=== PATIENT | female | born 1960 | race Caucasian/White ===

== ENCOUNTER → 2020-09-21 07:14 | Outpatient (CLI) | payer BC, SELFPAY ==
[2020-09-21 23:58] LABS: SARS-CoV-2 RNA PCR Negative
== END ==
PROVIDERS: PCP Family Medicine Adolescent Medicine; Visit Provider Family Medicine Adolescent Medicine
DX: R11.0 Nausea (principal); M79.10 Myalgia, unspecified site; Z20.822 Contact with and (suspected) exposure to COVID-19
CPT/HCPCS: C9803; U0003; U0005

== ENCOUNTER → 2020-12-09 06:36 | Outpatient (CLI) | payer BC, SELFPAY ==
[2020-12-09 19:49] LABS: SARS-CoV-2 RNA PCR Negative
== END ==
PROVIDERS: PCP Family Medicine Adolescent Medicine; Visit Provider Family Medicine Adolescent Medicine
DX: M79.10 Myalgia, unspecified site (principal); J06.9 Acute upper respiratory infection, unspecified; Z20.822 Contact with and (suspected) exposure to COVID-19
CPT/HCPCS: C9803; U0003; U0005

== ENCOUNTER 2021-09-03 10:35 | Inpatient (IN) | payer BC, SELFPAY ==
[2021-09-03] VITALS (11 sets, daily range): BP systolic 145–208; BP diastolic 63–103; PULSE 63–81; RESP 14–26; TEMP 35.9–36.7; O2SAT 97–99; BMI 43.4
--- NOTE | ~2021-09-03 | XR_ITS ---
EXAMINATION: XR chest 2V DATE: 09/03/2021 11:13 INDICATION: Dyspnea on exertion. TECHNIQUE: Frontal and lateral views of the chest were obtained. COMPARISON: Chest 2 views 12/20/2010 FINDINGS: There are mild airspace opacities in the lower lung zones. There are small pleural effusion s. No pneumothorax. The heart size is normal. Surgical clips in the right upper quadrant are likely f rom cholecystectomy. IMPRESSION: 1. Mild airspace opacities in the lower lung zones, consistent with atelectasis versus pneumonia. 2. Small pleural effusions. Reviewed, dictated and finalized at location A. TRICAL TROUPER
--- NOTE | ~2021-09-03 | CT_ITS ---
EXAMINATION: CTA chest PE protocol DATE: 09/03/2021 11:58 INDICATION: Shortness of breath. TECHNIQUE: Computed tomography angiography (CTA) of the chest was performed with 100 mL Omnipaque-350 intravenous contrast timed to evaluate the pulmonary arteries. Coronal maximum intensity projection 3D-reconstructions were created by the technologist. Automated exposure control and iterative reconst ruction technique were employed. The dose-length product was 1018.89 mGy-cm. COMPARISON: Chest 2 views 09/03/2021 FINDINGS: There are small pleural effusions, right worse than left. A calcified left lung nodule and calcified left hilar and mediastinal lymph nodes are consistent with old granulomatous disease. There is mild atelectasis bilaterally. There are mild patchy groundglass opacities in left upper lobe. The re is smooth septal thickening in the lungs. Cardiomegaly is noted. There are coronary artery calcifi cations. No pericardial effusion. There is no pulmonary embolus. Calcifications in the liver and sple en are consistent with old granulomatous disease. There are changes of cholecystectomy. There is a sm all volume of perihepatic ascites. There is mild thoracic spondylosis. IMPRESSION: 1. No pulmonary embolus. 2. Diffuse lung disease, likely mild pulmonary edema. Mild groundglass opacities in left upper lobe m ay be pulmonary edema or pneumonia. 3. Small pleural effusions. 4. Small volume of ascites. Reviewed, dictated and finalized at location A. ERCIAL HORTICULTURE INSTRUCTOR IMPRESSION: 1. No pulmonary embolus. 2. Diffuse lung disease, likely mild pulmonary edema. Mild groundglass opacitie s in left upper lobe may be pulmonary edema or pneumonia. 3. Small pleural effusions. 4. Small volume of ascites.
--- NOTE | ~2021-09-03 | US_ITS ---
EXAMINATION: US renal BI EXAM DATE: 09/04/2021 09:11 INDICATION: Elevated Creatinine. TECHNIQUE: Multiple grayscale and Doppler images of the kidneys were obtained (by a technologist who performed the scan) and subsequently reviewed. There is no prior study for comparison. FINDINGS: Some limitations from body habitus, poor acoustic windows. Right kidney: There is normal contour and echogenicity. It measures 10.3 x 5.4 centimeters. There a re no focal renal lesions identified. There is no hydronephrosis. Left kidney: There is normal contour and echogenicity. It measures 10.5 x 5.4 centimeters. There ar e no focal renal lesions identified. There is no hydronephrosis. Bladder unremarkable. IMPRESSION: 1. No hydronephrosis. Reviewed, dictated and finalized at location A. ED GOODS CONTROLS OPERATOR IMPRESSION: 1. No hydronephrosis.
--- NOTE | 2021-09-03 10:38 | ECG_ITS ---
Measurements Intervals [place] Rate: 66 P: 53 [place]: 162 QRS: 44 QRSD: 79 T: 26 QT: 401 QTc: 421 Interpretive Statements SINUS RHYTHM LOW-VOLTAGE QRS IN PRECORDIAL LEADS NONSPECIFIC T-WAVE ABNORMALITY BORDERLINE ECG NO PREVIOUS ECG AVAILABLE FOR COMPARISON Electronically Signed On 09-03-2021 11:12:40 PLAY THERAPIST by Gerber Anaya M.D.
[2021-09-03 11:07] LABS: Basophils Absolute Auto 0.1 K/mm3 (0.0-0.1); Basophils Percent Auto 1.1 % (0.2-1.2); Eosinophils Absolute Auto 0.5 K/mm3 (0-0.3); Eosinophils Percent Auto 4.9 % (0-4.4); Hematocrit 35.3 % (37.0-47.0); Hemoglobin 10.9 g/dL (12.0-15.0); Immature Granulocyte Absolute 0.08 K/mm3 (0.00-0.031); Immature Granulocyte Percent A 0.8 % (0-0.5); Lymphocytes Absolute Auto 1.56 K/mm3 (0.9-3.2); Lymphocytes Percent Auto 14.6 % (18.3-44.2); Mean Corpuscular HGB Conc 30.9 g/dl (32-36); Mean Corpuscular Hemoglobin 29.3 pg (26-34); Mean Corpuscular Volume 94.9 fl (80-100); Mean Platelet Volume 9.3 fl (7.4-10.4); Monocytes Absolute Auto 0.5 K/mm3 (0.1-0.6); Monocytes Percent Auto 4.9 % (2.6-8.5); Neutrophils Absolute Auto 7.9 K/mm3 (1.3-6.7); Neutrophils Percent Auto 73.7 % (45.5-73.1); Platelet Count Result 290 k/mm3 (150-375); Red Blood Count 3.72 M/mm3 (4.2-5.4); Red Cell Distribution Width 13.8 % (11.5-14.5); White Blood Count 10.7 K/mm3 (4.5-10.0)
--- NOTE | 2021-09-03 11:16 | ED.SOB ---
HPI - SOB/Dyspnea General Chief Complaint: Shortness of Breath/Dyspnea Stated Complaint: SOB X WEEKS Time Seen by Provider: 09/03/21 10:57 Source: patient Mode of arrival: ambulatory Limitations: no limitations History of Present Illness HPI Narrative: This is a 61 year old female that presents to the ER for exertional shortness of breath. Worsening over the last couple of weeks. Associated with a mild chest discomfort and swelling in her legs. Denies fever or cough. Related Data Home Medications Medication Instructions Recorded Confirmed glimepiride 2 mg tablet 1 mg PO QAM tablet 08/08/21 08/08/21 indapamide 2.5 mg tablet 2.5 mg PO DAILY 08/08/21 08/08/21 losartan 100 mg tablet 100 mg PO DAILY 08/08/21 08/08/21 metoprolol succinate 100 mg 100 mg PO DAILY 08/08/21 08/08/21 tablet,extended release 24 hr Saccharomyces boulardii 250 mg 250 mg PO DAILY cap 08/09/21 capsule pantoprazole 40 mg tablet,delayed 40 mg PO QHS 08/09/21 release vitamin B complex 1 tablet PO DAILY 08/09/21 Allergies Allergy/AdvReac Type Severity Reaction Status Date / Time adhesive Allergy Unknown PLASTIC Verified 08/09/21 07:59 TAPE BLISTERS/ITCHING No Known Allergies Allergy Verified 08/09/21 07:59 Review of Systems Review of Systems: CONSTITUTIONAL: Denies fever CARDIOVASCULAR: Reports chest pain, and edema. RESPIRATORY: Reports dyspnea. Denies cough All systems reviewed & are unremarkable except as noted in HPI and below PMFSH Past Medical History Medical History (Updated 09/03/21 @ 13:03 by Татьяна Evangelista PA-C) Essential (primary) hypertension Major depressive disorder, recurrent, mild Type 2 diabetes mellitus without complications Surgical History Surgical History H/O hysterectomy with oophorectomy 1993 History of bladder surgery 1993 History of cholecystectomy 2007 Family History Family History (Updated 08/09/21 @ 08:08 by Anny Cortez MA) Mother Diabetes mellitus Father Heart disease Hypertension Social History Social History (Updated 08/09/21 @ 08:09 by Anny Cortez MA) Years smoked: 5 Smoking status: Former smoker Second hand tobacco smoke exposure: No Alcohol intake: current Alcohol use details: rarely Substance use: never Substance use type: does not use Gender identity (if verbalized by the patient): Female Sexual Orientation (if Verbalized by the Patient): Straight or Heterosexual Spiritual care concerns: No Agree to blood products: Yes Exam Narrative: GENERAL: Well-appearing, well-nourished, and in no acute distress. HEAD: Normocephalic, atraumatic. EYES: EOMI. ENT: Mucous membranes moist. Oropharynx without tonsillar hypertrophy exudate or other lesions. NECK: Supple. No adenopathy or masses CHEST: Clear to auscultation. No respiratory distress. No wheezes rales or rhonchi HEART: Regular rate and rhythm. No murmur heard. Normal peripheral pulses. EXTREMITIES: Normal range of motion. Very mild pitting edema to the bilateral lower extremities. SKIN: Warm, dry, no rash. NEURO: No focal deficits. Alert and oriented x3. PSYCH: Normal mood and affect Course Consultations Consultation #1: Spoke with hospitalist about patient and work-up who accepts admission Date: 09/03/21 Vital Signs Vital signs: Vital Signs Temperature 98.1 F 09/03/21 10:49 Pulse Rate 63 09/03/21 10:49 Respiratory Rate 22 H 09/03/21 10:49 Blood Pressure 208/90 H 09/03/21 10:49 Pulse Oximetry 99 09/03/21 10:49 Temperature 98.1 F 09/03/21 10:49 Pulse Rate 74 09/03/21 12:08 Respiratory Rate 22 H 09/03/21 12:08 Blood Pressure 201/100 H 09/03/21 12:08 Pulse Oximetry 97 09/03/21 12:08 MDM - SOB/Dyspnea MDM Narrative Medical decision making narrative: Patient presents to the emergency department for worsening exertional dyspnea ongoing over the last couple of weeks. Blood pr
[2021-09-03 11:17] LABS: Alanine Aminotransferase 12 U/L (4-35); Albumin Level 4.2 g/dL (3.5-5.1); Alkaline Phosphatase 106 U/L (38-126); Anion Gap 9 mmol/L (8-16); Aspartate Amino Transferase 25 U/L (14-36); Bilirubin,Total 0.6 mg/dL (0.2-1.3); Blood Urea Nitrogen 15 mg/dL (7-17); Calcium 8.8 mg/dL (8.4-10.2); Carbon Dioxide 27 mmol/L (22-30); Chloride 106 mmol/L (98-107); Estimated CRCL calculation 53 ml/min; Estimated Glomerular Filt Rate 46; Glucose 101 mg/dL (65-110); Potassium 3.9 mmol/L (3.4-5.0); Sodium 142 mmol/L (137-145)
[2021-09-03 11:22] LABS: INR 1.2; Prothrombin Time 14.5 Seconds (11.1-14.7)
[2021-09-03 11:23] LABS: Partial Thromboplastin Time 35.4 SECONDS (22.3-36.8)
[2021-09-03 11:25] LABS: D Dimer 2.44 ug/mL (<0.48)
[2021-09-03 11:29] LABS: NT Pro B Type Natriuretic Pept 3990 pg/mL (5-100)
[2021-09-03 11:51] LABS: Troponin I < 0.012 ng/mL (0.000-0.034)
[2021-09-03] MEDS: FUROSEMIDE INJ 40 MG/4 ML VIAL IV PUSH ×2 (12:42→18:12)
[2021-09-03 13:09] LABS: Influenza A QL RT-PCR Negative (Negative); Influenza B QL RT-PCR Negative (Negative); SARS-CoV-2 RNA PCR Negative
--- NOTE | 2021-09-03 14:20 | PM.IMHP ---
H&P: HPI History of Present Illness Date/Time: 09/03/21 14:20 Chief Complaint: Shortness of breath. Narrative: This is a very pleasant 61-year-old female with hypertension, hyperlipidemia, type 2 diabetes, and sleep apnea who presented to the emergency department for evaluation of shortness of breath. The last couple of weeks she has noticed increasing dyspnea on lesser and lesser exertion to the point where she is getting winded and tired even when walking about the home. She has noticed mild swelling in her legs and reports mild orthopnea. She was recently started on atorvastatin and wondered if her symptoms were related to the drug however she spoke with her doctor's office and they did not think the medication was the cause. Due to ongoing symptoms she thought it would be best to come in today for evaluation. Chest x-ray showed mild airspace opacities in the lower lung zones consistent with atelectasis versus pneumonia and small pleural effusions. A subsequent chest CTA showed no pulmonary embolus and diffuse lung disease which is most likely mild pulmonary edema. EKG showed sinus rhythm with low-voltage QRS in precordial leads and nonspecific T-wave abnormalities. Troponin was less than 0.012. With further questioning she also endorses a couple of episodes over the past week or 2 of fleeting and self-limiting midsternal chest tightness with mild shortness of breath and sweats. She has no known history of coronary artery disease or congestive heart failure. She has not had fever, chills, or sweats. No cold or flu symptoms. No sick contacts. Review of Systems Review of Systems: Twelve systems were reviewed. Last year she lost 70 lb but unfortunately gained majority of them back. Most recent hemoglobin A1c was 5%. No sick contacts. She denies vomiting and diarrhea. No dysuria. She states compliance with her CPAP. No pleuritic pain. Except as documented, all other systems were reviewed and are negative. [facility] Past Medical History Medical History (Updated 09/03/21 @ 15:36 by Celena Jones PA-C) Diverticulitis Essential (primary) hypertension Major depressive disorder, recurrent, mild Obstructive sleep apnea on CPAP Type 2 diabetes mellitus without complications Surgical History Surgical History (Updated 09/03/21 @ 15:32 by Celena Jones PA-C) History of bladder suspension procedure (1992) History of carpal tunnel surgery of left wrist (2005) History of hysterectomy with oophorectomy (1992) History of laparoscopic cholecystectomy (2007) History of tubal ligation (1988) Status post excision of lipoma (2005) Left volar wrist Family History Family History Mother Diabetes mellitus Father Heart disease Hypertension Social History Social History (Updated 09/03/21 @ 22:20 by Celena Jones PA-C) Social History: Surrogate decision maker: Enoch Morgan, . Code status: Full code. Years smoked: 5 Smoking status: Former smoker Tobacco type: cigarettes Second hand tobacco smoke exposure: No Alcohol intake: current Alcohol use details: Rare alcohol socially and in moderation. Substance use: never Substance use type: does not use Additional living arrangements comments: The patient lives in [place] with her . 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 Meds Home Medications and Allergies Home Medications Medication Instructions Recorded Confirmed Type sitagliptin 100 mg tablet 100 mg PO DAILY #28 tablet 07/27/21 09/03/21 Rx glimepiride 2 mg tablet 0.5 mg PO QAM tablet 08/08/21 09/03/21 History losartan 100 mg tablet 100 mg PO DAILY 08/08/21 09/03/21 History metoprolol succinate 100 mg 100 mg PO DAILY 08/08/21 09/03/21 History tablet,extended release 24 hr Saccharomyces boulardii 250 mg 250 mg PO DAILY cap 08/09/21 09/03/21 History caps
--- NOTE | 2021-09-03 14:57 | ADMGEN ---
This patient, Kathy Morgan, was admitted to 3 Med Surg Room 319-01 at 1415. Patient/family oriented to hospital policies and general routines including ID bracelet, bed and alarms, visiting hours, pain management, procedures, bathroom and other care routines, personal items, smoking policy, room service/diet, and visiting hours. Information on how to activate the Rapid Response Team has been discussed. Patient/Family are encouraged to report perceived risks to care and to ask questions if they do not understand what they are told or what they should do.
[2021-09-03 14:59] LABS: Glucose Point of Care 73 mg/dl (65-105)
[2021-09-03 16:13] LABS: CRP 2.6 mg/dL (<1.0)
[2021-09-03 16:20] LABS: Hemoglobin A1C 5.3 % (<5.7)
[2021-09-03 16:31] LABS: Glucose Point of Care 89 mg/dl (65-105)
[2021-09-03 16:53] LABS: Iron 62 ug/dL (37-170)
[2021-09-03 17:02] LABS: Percent Iron Saturation 22 % (20-50)
[2021-09-03 17:09] LABS: Procalcitonin 0.1 ng/mL
[2021-09-03 17:15] LABS: Folic Acid 11.2 ng/mL (2.76->20)
[2021-09-03] MEDS: ZOLPIDEM TARTRATE (*CRX) 5 MG TABLET 10 MG PO (21:09)
[2021-09-03] MEDS: ACETAMINOPHEN 325 MG TABLET 650 MG PO (21:09)
[2021-09-03] MEDS: PANTOPRAZOLE 40 MG TABLET PO (21:09)
[2021-09-03 21:19] LABS: Glucose Point of Care 114 mg/dl (65-105)
[2021-09-03 22:20] LABS: Free T4 Free Thyroxine Reflex 1.61 ng/dL (0.78-2.19)
[2021-09-04] VITALS (11 sets, daily range): BP systolic 125–156; BP diastolic 56–83; PULSE 65–80; RESP 16–18; TEMP 35.9–37.1; O2SAT 95–99
[2021-09-04 00:20] LABS: Total Triiodothyronine (T3) 1.44 NG/ML (0.97-1.69)
[2021-09-04 05:37] LABS: Hematocrit 33.1 % (37.0-47.0); Hemoglobin 10.2 g/dL (12.0-15.0); Mean Corpuscular HGB Conc 30.8 g/dl (32-36); Mean Corpuscular Hemoglobin 28.7 pg (26-34); Mean Corpuscular Volume 93.2 fl (80-100); Mean Platelet Volume 9.3 fl (7.4-10.4); Platelet Count Result 253 k/mm3 (150-375); Red Blood Count 3.55 M/mm3 (4.2-5.4); Red Cell Distribution Width 13.8 % (11.5-14.5); White Blood Count 10.6 K/mm3 (4.5-10.0)
[2021-09-04 05:48] LABS: Anion Gap 7 mmol/L (8-16); Blood Urea Nitrogen 18 mg/dL (7-17); Calcium 8.3 mg/dL (8.4-10.2); Carbon Dioxide 31 mmol/L (22-30); Chloride 102 mmol/L (98-107); Estimated CRCL calculation 49 ml/min; Estimated Glomerular Filt Rate 42; Glucose 98 mg/dL (65-110); Magnesium 1.9 mg/dL (1.6-2.3); Potassium 3.2 mmol/L (3.4-5.0); Sodium 140 mmol/L (137-145)
--- NOTE | 2021-09-04 06:00 | ECHO_ITS ---
Patient Info Name: Kathy Morgan Age: 61 years : 1960 Gender: Female Ht: 63 in Wt: 245 lbs BSA: 2.29 m2 HR: 92 bpm BP: 150 / 74 mmHg Technical Quality: Good Exam Date: 09/04/2021 9:58 AM Exam Location: [facility] Patient Status: Inpatient Admit Date: 09/04/2021 Staff Ordering Physician: Татьяна Evangelista PA-C Hide Stretcher Hand: Niall Briones RDCS, RT Attending Provider: Tania Hokoer Referring Physician: Jean Carlos WALDROP; Exam Type: CA echo doppler color flow Study Info Indications I50.9 - Heart failure, unspecified Complete two-dimensional, color flow and Doppler transthoracic echocardiogram is performed. Strain analysis performed. Summary 1. Complete two-dimensional, color flow and Doppler transthoracic echocardiogram is performed. 2. Left ventricular chamber dimension is normal. 3. Left ventricular systolic function is normal, estimated at 55-60%. 4. The left ventricular diastolic function is abnormal. 5. E/e' 15 is elevated. 6. Global longitudinal strain is mildly abnormal at -16.5%. 7. Left atrial chamber dimension is mildly enlarged. 8. The mitral valve has mildly calcified annulus. 9. There is trace mitral valve regurgitation. 10. There is mild to moderate tricuspid valve regurgitation. 11. Mild pulmonary hypertension, estimated pulmonary arterial systolic pressure is 44 mmHg. Left Ventricle E/e' 15 is elevated. Global longitudinal strain is mildly abnormal at -16.5%. Left ventricular chamber dimension is normal. Left ventricular systolic function is normal, estimated at 55-60%. The left ventricular diastolic function is abnormal. Right Ventricle Right ventricular chamber dimension is normal. Right ventricular systolic function is normal. Left Atria Left atrial chamber dimension is mildly enlarged. Right Atria Right atrial chamber dimension is normal. Aortic Valve The aortic valve is trileaflet. There is no aortic valve stenosis. There is no aortic valve regurgitation. Pulmonic Valve There is no pulmonic regurgitation. Mitral Valve The mitral valve has mildly calcified annulus. There is no mitral valve stenosis. There is trace mitral valve regurgitation. Tricuspid Valve There is mild to moderate tricuspid valve regurgitation. Mild pulmonary hypertension, estimated pulmonary arterial systolic pressure is 44 mmHg. Pericardium/Pleural There is no pericardial effusion. Inferior Vena Cava Normal inferior vena cava with >50% collapse upon inspiration consistent with normal right atrial pressure, 5 mmHg. Aorta The aortic root size at the sinus of Valsalva is normal. Left Ventricular Outflow Tract Name Value Normal LVOT 2D LVOT Diameter 1.9 cm LVOT Doppler LVOT Peak Gradient 3 mmHg LVOT Mean Gradient 2 mmHg LVOT VTI 17 cm LVOT VTI/AV VTI Ratio 0.7 LVOT Stroke Volume 47 ml LVOT CO 3.3 l/min LVOT CI 1.5 l/min/m2 M
[2021-09-04 07:44] LABS: Glucose Point of Care 105 mg/dl (65-105)
[2021-09-04] MEDS: METOPROLOL SUCCINATE EXT REL 100 MG TABCR PO (08:27)
[2021-09-04] MEDS: FUROSEMIDE INJ 40 MG/4 ML VIAL IV PUSH ×2 (08:27→17:35)
[2021-09-04] MEDS: VITAMIN B COMPLEX CAPSULE 1 CAP PO (08:28)
[2021-09-04] MEDS: POTASSIUM CHLORIDE 20 MEQ TABLET.ER 40 MEQ PO (08:28)
[2021-09-04] MEDS: LOSARTAN POTASSIUM 100 MG TABLET PO (08:28)
[2021-09-04] MEDS: ATORVASTATIN 20 MG TABLET PO (08:29)
--- NOTE | 2021-09-04 08:45 | PM.CNCAR ---
Assessment and Plan Assessment and plan (1) CHF exacerbation: Qualifiers: Heart failure type: unspecified Qualified Code(s): I50.9 - Heart failure, unspecified <MAKI Chávez - Last Filed: 09/04/21 09:59> Code(s): I50.9 - Heart failure, unspecified <MAKI Chávez - Last Filed: 09/04/21 09:59> Status: Acute <MAKI Chávez - Last Filed: 09/04/21 09:59> Assessment and Plan: Presented with a 2 week complaint of worsening shortness of breath. Initial workup with elevated BNP and small pleural effusions on chest x-ray consistent with CHF exacerbation. She has been diuresed and has improved symptomatically. Agree with IV furosemide 40 mg b.i.d.. Will likely be able to switch her to p.o. diuretics tomorrow. Monitor renal function and electrolytes with daily BMP Daily weights Accurate intake and output Echocardiogram has been ordered, not yet performed - further recommendations to follow after review of these results DVT prophylaxis <MAKI Chávez - Last Filed: 09/04/21 09:59> (2) Essential (primary) hypertension: Code(s): I10 - Essential (primary) hypertension <MAKI Chávez - Last Filed: 09/04/21 09:59> Status: Acute <MAKI Chávez - Last Filed: 09/04/21 09:59> Assessment and Plan: She was quite hypertensive on presentation but her blood pressureis improving but not at goal. Will add spironolactone 25 mg daily. <MAKI Chávez - Last Filed: 09/04/21 09:59> (3) Obstructive sleep apnea on CPAP: Code(s): G47.33 - Obstructive sleep apnea (adult) (pediatric); Z99.89 - Dependence on other enabling machines and devices <MAKI Chávez - Last Filed: 09/04/21 09:59> Status: Acute <MAKI Chávez - Last Filed: 09/04/21 09:59> Assessment and Plan: She is compliant with CPAP. <MAKI Chávez - Last Filed: 09/04/21 09:59> (4) Type 2 diabetes mellitus without complications: Code(s): E11.9 - Type 2 diabetes mellitus without complications <Kendy BruceMelly MAKI Treviño - Last Filed: 09/04/21 09:59> Status: Acute <Kendy TeoMelly MAKI Treviño - Last Filed: 09/04/21 09:59> Assessment and Plan: Controlled. Her last A1c was 5 0. Management per hospitalist service. <MAKI Chávez - Last Filed: 09/04/21 09:59> Additional Plan Attending Addendum: I have personally seen and examined this patient at bedside. I agree with the above documentation and plan of care as outlined. -61-year-old pleasant female with a history of type 2 diabetes mellitus, JANEL on CPAP, hypertension, hyperlipidemia, obesity, chronic kidney disease complained of progressive exertional dyspnea, fatigue, orthopnea, weight gain, lower extremity edema with abdominal fullness causing her to present to the ER. She claims compliance with medications, not consistently checking her blood pressure. Lisinopril was discontinued secondary to increased creatinine. At presentation BP markedly elevated it 208/90 mm Hg consistent with hypertensive urgency with evidence of CHF by x-ray, elevated BNP and symptoms. She has responded favorably to IV diuresis and feels much better. Blood pressure has been better control with adjustment in her medical therapy. She denies dizziness. Edema improved. Abdomen is softer. Neck is less full. Exam: Very pleasant female, NAD, A&Ox3, nonfocal neuro exam No obvious JVD obese neck, Lungs diminished breath sounds at the bases no rales or wheezes. Respirations unlabored Cardio RRR, S1/S2 Abd obese, soft, NT/ND, +BS Ext trace to 1+ bilateral equal pitting lower extremity edema, no clubbing, or cyanosis Plan of Care: Agree with plan of care as outlined. Judicious blood pressure control. Monitor renal function electrolytes. Monitor tolerance with losartan, spironolactone. Transition to oral Lasix 40 mg b.i.d. in a.m.. Accurate
[2021-09-04] MEDS: SPIRONOLACTONE 25 MG TABLET PO (10:30)
[2021-09-04 12:11] LABS: Glucose Point of Care 106 mg/dl (65-105)
--- NOTE | 2021-09-04 12:52 | PM.IMPN ---
Progress Note: A&P Additional Plan Assessment and plan (1) Congestive heart failure: Code(s): I50.9 - Heart failure, unspecified Status: Acute Assessment and Plan: - High suspicion for CHF based upon findings on ER workup. - Start IV Lasix 40 mg BID - Accurate I&O - ECHO ordered - Supplemental Potassium ordered at 40 mEq po daily. - daily weights - Heart healthy diet. (2) Renal failure: Code(s): N19 - Unspecified kidney failure Status: Acute Assessment and Plan: - Suspicion acute on chronic. - Review of past creatinine level show she has been higher at 1.44 on 08/09/21. - Avoid nephrotoxic medications that are not absolutely necessary. - Cardiology following to assist with dosing of Lasix. - Renal US ordered. - Trend daily labs and VS. (3) Normocytic anemia: Code(s): D64.9 - Anemia, unspecified Status: Acute Assessment and Plan: - Iron studies all within normal limits. - Suspicion that pt. has degree of renal failure that could be contributing. - Monitor H&H. - H&H currently stable at 10.2/33.1. - No signs of overt bleeding. (4) Essential (primary) hypertension: Code(s): I10 - Essential (primary) hypertension Status: Acute Assessment and Plan: - Improving, but not adequately controlled as of yet. - Cardiology added Spironolactone 25 mg po daily. - Will monitor VS. (5) Obstructive sleep apnea on CPAP: Code(s): G47.33 - Obstructive sleep apnea (adult) (pediatric); Z99.89 - Dependence on other enabling machines and devices Status: Acute Assessment and Plan: - Respiratory to provide CPAP. (6) Type 2 diabetes mellitus without complications: Code(s): E11.9 - Type 2 diabetes mellitus without complications Status: Acute Assessment and Plan: - SSI - Glucose checks AC and HS - Hypoglycemic Protocol Time Spent With Patient Time with patient: 15 - 25 minutes Subjective Date/time seen: 09/04/21 0900 This patient was examined at the bedside in interval assessment. She was admitted due to having increased Dyspnea and orthopnea with lower extremity edema increasing. Her assessment in ED was significant for signs of CHF/Overload. She was admitted with concerns for heart failure and ECHO was ordered. Lasix is ordered for diuresis BID and Cardiology is consulted. We are awaiting further recommendations from Cardiology. Review of Systems Review of Systems: A complete 12 point ROS was completed and is otherwise negative with exception of what is noted in HPI. All systems reviewed & are unremarkable except as noted in HPI and below Exam Narrative: General: Well-developed female in the semi-Bashir position in bed in no acute distress. Weight: 111.17 kg. HEENT: PERRL, EOMI. Sclerae anicteric. Oral mucosa moist. Oropharynx is crowded. Neck: Supple. Exam is limited due to neck circumference. No obvious JVD. Respiratory: Respirations are nonlabored. She is slightly winded when walking back from the bathroom. Faint crackles at the bases. Cardiovascular: Regular rate and rhythm with S1-S2. No murmur, rub, or gallop. Gastrointestinal: Abdomen is soft, obese, nontender, and nondistended with positive bowel sounds. Skin: Warm and dry. No rash or lesions on limited exam. Extremities: No cyanosis or clubbing. 1+ pedal and pretibial edema bilaterally. Radial and pedal pulses intact. Neurological: Alert. Cranial nerves 2-12 are grossly intact. No gross focal deficits to casual conversation. Psychiatric: Pleasant and cooperative with normal mood and affect. Judgment and insight intact. Objective Data Vital Signs Vital Signs: Vital Signs - 24 hr 09/03/21 13:13 09/03/21 13:17 09/03/21 13:29 Temperature Pulse Rate 68 72 71 Respiratory Rate 23 H 18 22 H Blood Pressure 173/103 H 178/96 H 195/92 H Pulse Oximetry 99 99 98 09/03/21 14:00 09/03/21 14:58 09/03/21 21:25 Temperature 96.6 F L Pulse Rate 65 6
[2021-09-04 16:36] LABS: Glucose Point of Care 114 mg/dl (65-105)
[2021-09-04] MEDS: PANTOPRAZOLE 40 MG TABLET PO (20:00)
[2021-09-04] MEDS: ZOLPIDEM TARTRATE (*CRX) 5 MG TABLET 10 MG PO (20:56)
[2021-09-04 20:58] LABS: Glucose Point of Care 132 mg/dl (65-105)
[2021-09-05] VITALS (12 sets, daily range): BP systolic 129–146; BP diastolic 58–63; PULSE 66–78; RESP 16–18; TEMP 36.1–36.4; O2SAT 94–98
[2021-09-05 07:15] LABS: Potassium 3.7 mmol/L (3.4-5.0)
[2021-09-05 08:07] LABS: Glucose Point of Care 103 mg/dl (65-105)
[2021-09-05] MEDS: POTASSIUM CHLORIDE 20 MEQ TABLET.ER 40 MEQ PO (08:47)
[2021-09-05] MEDS: ATORVASTATIN 20 MG TABLET PO (08:47)
[2021-09-05] MEDS: FUROSEMIDE 40 MG TABLET PO (08:47)
[2021-09-05] MEDS: SPIRONOLACTONE 25 MG TABLET PO (08:48)
[2021-09-05] MEDS: LOSARTAN POTASSIUM 100 MG TABLET PO (08:48)
[2021-09-05] MEDS: METOPROLOL SUCCINATE EXT REL 100 MG TABCR PO (08:48)
[2021-09-05] MEDS: VITAMIN B COMPLEX CAPSULE 1 CAP PO (08:49)
[2021-09-05] MEDS: ACETAMINOPHEN 325 MG TABLET 650 MG PO (08:49)
[2021-09-05 11:00] LABS: Hematocrit 35.4 % (37.0-47.0); Mean Corpuscular HGB Conc 31.1 g/dl (32-36); Mean Corpuscular Hemoglobin 28.9 pg (26-34); Mean Corpuscular Volume 92.9 fl (80-100); Mean Platelet Volume 9.5 fl (7.4-10.4); Platelet Count Result 298 k/mm3 (150-375); Red Blood Count 3.81 M/mm3 (4.2-5.4); White Blood Count 9.6 K/mm3 (4.5-10.0)
[2021-09-05 11:34] LABS: Anion Gap 7 mmol/L (8-16); Blood Urea Nitrogen 22 mg/dL (7-17); Calcium 8.5 mg/dL (8.4-10.2); Carbon Dioxide 32 mmol/L (22-30); Chloride 100 mmol/L (98-107); Estimated CRCL calculation 44 ml/min; Estimated Glomerular Filt Rate 38; Glucose 179 mg/dL (65-110); Potassium 3.3 mmol/L (3.4-5.0); Sodium 139 mmol/L (137-145)
[2021-09-05 11:49] LABS: Glucose Point of Care 162 mg/dl (65-105)
--- NOTE | 2021-09-05 14:03 | PM.PNCARD ---
Progress Note: A&P Assessment and Plan (1) CHF exacerbation: Qualifiers: Heart failure type: unspecified Qualified Code(s): I50.9 - Heart failure, unspecified <MAKI Chávez - Last Filed: 09/05/21 14:32> Code(s): I50.9 - Heart failure, unspecified <MAKI Chávez - Last Filed: 09/05/21 14:32> Status: Acute <MAKI Chávez - Last Filed: 09/05/21 14:32> Assessment and Plan: Presented with a 2 week complaint of worsening shortness of breath. Initial workup with elevated BNP and small pleural effusions on chest x-ray consistent with CHF exacerbation. She has been diuresed and has improved symptomatically. Decrease furosemide to 40mg p.o. daily, she is euvolemic on exam Monitor renal function and electrolytes with daily BMP Daily weights Accurate intake and output Echocardiogram showed normal LV systolic fxn, she does have diastolic dysfunction. Continue losartan, metoprolol, spironolactone. DVT prophylaxis OK for discharge from a cardiac perspective. <MAKI Chávez - Last Filed: 09/05/21 14:32> (2) Essential (primary) hypertension: Code(s): I10 - Essential (primary) hypertension <MAKI Chávez - Last Filed: 09/05/21 14:32> Status: Acute <MAKI Chávez - Last Filed: 09/05/21 14:32> Assessment and Plan: She was quite hypertensive on presentation but her blood pressure is improving. <MAKI Chávez - Last Filed: 09/05/21 14:32> (3) Obstructive sleep apnea on CPAP: Code(s): G47.33 - Obstructive sleep apnea (adult) (pediatric); Z99.89 - Dependence on other enabling machines and devices <MAKI Chávez - Last Filed: 09/05/21 14:32> Status: Acute <MAKI Chávez - Last Filed: 09/05/21 14:32> Assessment and Plan: She is compliant with CPAP. <MAKI Chávez - Last Filed: 09/05/21 14:32> (4) Type 2 diabetes mellitus without complications: Code(s): E11.9 - Type 2 diabetes mellitus without complications <MAKI Chávez - Last Filed: 09/05/21 14:32> Status: Acute <MAKI Chávez - Last Filed: 09/05/21 14:32> Assessment and Plan: Controlled. Her last A1c was 5 0. Management per hospitalist service. <MAKI Chávez - Last Filed: 09/05/21 14:32> Additional Plan Attending addendum: I agree with the above documentation and plan of care as outlined. Patient will follow up as an outpatient as scheduled. Continue present medical therapy. Disposition per hospitalist service. <Gerber Anaya MD - Last Filed: 09/05/21 16:12> Subjective Date/time seen: 09/05/21 14:03 Cardiology follow up Feeling better today. Denies any shortness of breath. She does have a complaint of headache. <MAKI Chávez - Last Filed: 09/05/21 14:32> Review of Systems Review of Systems: All systems reviewed & are unremarkable except as noted in HPI and below <MAKI Chávez - Last Filed: 09/05/21 14:32> Constitutional: Constitutional: Reports body ache(s), Denies excessive sweating, Denies fatigue, Denies headache(s) and Denies weakness <MAKI Chávez - Last Filed: 09/05/21 14:32> Eyes: Eyes: Denies change in vision <MAKI Chávez - Last Filed: 09/05/21 14:32> ENT: Reports Normal hearing present and Denies headache(s) <MAKI Chávez - Last Filed: 09/05/21 14:32> Cardiovascular: Cardiovascular: Denies chest pain, Denies diaphoresis, Reports pedal edema, Reports leg edema, Denies lightheadedness, Denies palpitations, Reports dyspnea and Reports dyspnea on exertion <MAKI Chávez - Last Filed: 09/05/21 14:32> Respiratory: Respiratory: Reports dyspnea, Reports dyspnea on exertion and Denies wheezing <MAKI Chávez - Last Filed: 09/05/21 14:32> Gastrointestinal: Gastrointestinal: Denies melena, Reports bloating and Denies hematochez
--- NOTE | 2021-09-05 15:19 | PC.NURSE ---
On 09/05/21, the student, [Candace Kat ], provided care and completed [facility] documentation on this patient. I have reviewed the student's documentation and agree with the findings.
--- NOTE | 2021-09-05 15:28 | P.PNIM_ITS ---
Progress Note: A&P Assessment and Plan (1) Congestive heart failure: Qualifiers: Heart failure type: diastolic Heart failure chronicity: acute Qualified Code(s): I50.31 - Acute diastolic (congestive) heart failure Code(s): I50.9 - Heart failure, unspecified Status: Acute Assessment and Plan: Presented with increased shortness of breath and edema. BNP 3900. * CXR and CTA showed diffuse lung disease, likely secondary to pulmonary edema * Echocardiogram showed EF 55-60% with abnormal diastolic dysfunction * Appreciate cardiology consultation * She has improved with IV Lasix 40 mg b.i.d.. Transition to p.o. Lasix 40 mg tomorrow morning * Plan for discharge home tomorrow if continued improvement * Monitor intake and output. Weigh daily * Continue spironolactone, losartan, metoprolol succinate (2) Renal failure: Code(s): N19 - Unspecified kidney failure Status: Acute Assessment and Plan: Creatinine 1.2 on presentation * Prior labs from 1 month prior showed creatinine of 1.4. She may have underlying CKD * Renal ultrasound was unremarkable * Creatinine is 1.4 today, BUN 22 * Likely secondary to need for diuresis * Recheck BMP tomorrow (3) Normocytic anemia: Code(s): D64.9 - Anemia, unspecified Status: Acute Assessment and Plan: Hemoglobin and hematocrit are stable * Iron panel, B12 and folate are normal * Continue to monitor H&H (4) Essential (primary) hypertension: Code(s): I10 - Essential (primary) hypertension Status: Acute Assessment and Plan: Blood pressures were quite elevated on admission up to 200/100 * Blood pressures have improved with diuretics * Last BP 146/63 * Continue losartan, metoprolol, and furosemide * Monitor blood pressure trends and adjust medication regimen as needed (5) Obstructive sleep apnea on CPAP: Code(s): G47.33 - Obstructive sleep apnea (adult) (pediatric); Z99.89 - Dependence on other enabling machines and devices Status: Acute Assessment and Plan: Continue CPAP during admission (6) Type 2 diabetes mellitus without complications: Code(s): E11.9 - Type 2 diabetes mellitus without complications Status: Acute Assessment and Plan: A1c is 5.3. Blood sugars have been well controlled * Continue Accu-Cheks, sliding scale insulin, hypoglycemic protocol * Home sitagliptin and pioglitazone on hold given concerns for congestive heart failure (7) Hypokalemia: Code(s): E87.6 - Hypokalemia Status: Acute Assessment and Plan: Potassium 3.3 today * Likely secondary to diuretics * Continue with 40 mEq p.o. KCl daily * Monitor BMP Subjective Date/time seen: 09/05/21 15:28 Interval history: Date of service: 09/05/2021 Kathy Morgan is a 61-year-old female with a history of hypertension, JANEL, type 2 diabetes mellitus who is seen in follow-up for CHF exacerbation. She is feeling better today. She notes improvement in IGLESIAS as well as conversational dyspnea. Her daughter is on speaker phone during my encounter and she notes that she has been able to talk on the phone more comfortably to her today without having to pause to catch her breath. She still endorses dyspnea with longer activity and notes that even from walking to the bathroom and back and getting back in bed she is a bit winded. Her main complaint is feeling fatigued. She also endorses orthopnea. No PND. Feels her swelling has improved significantly, if not resolved. She has no other
--- NOTE | 2021-09-05 15:28 | PM.IMPN ---
Progress Note: A&P Assessment and Plan (1) Congestive heart failure: Qualifiers: Heart failure type: diastolic Heart failure chronicity: acute Qualified Code(s): I50.31 - Acute diastolic (congestive) heart failure Code(s): I50.9 - Heart failure, unspecified Status: Acute Assessment and Plan: Presented with increased shortness of breath and edema. BNP 3900. CXR and CTA showed diffuse lung disease, likely secondary to pulmonary edema Echocardiogram showed EF 55-60% with abnormal diastolic dysfunction Appreciate cardiology consultation She has improved with IV Lasix 40 mg b.i.d.. Transition to p.o. Lasix 40 mg tomorrow morning Plan for discharge home tomorrow if continued improvement Monitor intake and output. Weigh daily Continue spironolactone, losartan, metoprolol succinate (2) Renal failure: Code(s): N19 - Unspecified kidney failure Status: Acute Assessment and Plan: Creatinine 1.2 on presentation Prior labs from 1 month prior showed creatinine of 1.4. She may have underlying CKD Renal ultrasound was unremarkable Creatinine is 1.4 today, BUN 22 Likely secondary to need for diuresis Recheck BMP tomorrow (3) Normocytic anemia: Code(s): D64.9 - Anemia, unspecified Status: Acute Assessment and Plan: Hemoglobin and hematocrit are stable Iron panel, B12 and folate are normal Continue to monitor H&H (4) Essential (primary) hypertension: Code(s): I10 - Essential (primary) hypertension Status: Acute Assessment and Plan: Blood pressures were quite elevated on admission up to 200/100 Blood pressures have improved with diuretics Last BP 146/63 Continue losartan, metoprolol, and furosemide Monitor blood pressure trends and adjust medication regimen as needed (5) Obstructive sleep apnea on CPAP: Code(s): G47.33 - Obstructive sleep apnea (adult) (pediatric); Z99.89 - Dependence on other enabling machines and devices Status: Acute Assessment and Plan: Continue CPAP during admission (6) Type 2 diabetes mellitus without complications: Code(s): E11.9 - Type 2 diabetes mellitus without complications Status: Acute Assessment and Plan: A1c is 5.3. Blood sugars have been well controlled Continue Accu-Cheks, sliding scale insulin, hypoglycemic protocol Home sitagliptin and pioglitazone on hold given concerns for congestive heart failure (7) Hypokalemia: Code(s): E87.6 - Hypokalemia Status: Acute Assessment and Plan: Potassium 3.3 today Likely secondary to diuretics Continue with 40 mEq p.o. KCl daily Monitor BMP Subjective Date/time seen: 09/05/21 15:28 Interval history: Date of service: 09/05/2021 Kathy Morgan is a 61-year-old female with a history of hypertension, JANEL, type 2 diabetes mellitus who is seen in follow-up for CHF exacerbation. She is feeling better today. She notes improvement in IGLESIAS as well as conversational dyspnea. Her daughter is on speaker phone during my encounter and she notes that she has been able to talk on the phone more comfortably to her today without having to pause to catch her breath. She still endorses dyspnea with longer activity and notes that even from walking to the bathroom and back and getting back in bed she is a bit winded. Her main complaint is feeling fatigued. She also endorses orthopnea. No PND. Feels her swelling has improved significantly, if not resolved. She has no other concerns. Denies nausea, vomiting, fever, chills, dizziness, lightheadedness, palpitations. Review of Systems Review of Systems: All systems reviewed & are unremarkable except as noted in HPI and below Exam Narrative: General: Obese, well-appearing 61 year-old female, sitting up in bed, comfortable, NARD Neuro: awake, alert and oriented x4, speech clear, no focal neuro deficits noted HEENMT: normocephalic, a
[2021-09-05 16:33] LABS: Glucose Point of Care 71 mg/dl (65-105)
[2021-09-05] MEDS: PANTOPRAZOLE 40 MG TABLET PO (20:33)
[2021-09-05] MEDS: ZOLPIDEM TARTRATE (*CRX) 5 MG TABLET 10 MG PO (20:33)
[2021-09-05 21:18] LABS: Glucose Point of Care 170 mg/dl (65-105)
[2021-09-06] VITALS: PULSE 66
[2021-09-06 03:06] VITALS: O2SAT 97
[2021-09-06 04:00] VITALS: PULSE 70
[2021-09-06 05:30] VITALS: BP 134/60; PULSE 68; RESP 18; TEMP 35.9; O2SAT 96
[2021-09-06 06:34] LABS: Hematocrit 36.8 % (37.0-47.0); Hemoglobin 11.3 g/dL (12.0-15.0); Mean Corpuscular HGB Conc 30.7 g/dl (32-36); Mean Corpuscular Volume 94.4 fl (80-100); Mean Platelet Volume 9.5 fl (7.4-10.4); Platelet Count Result 291 k/mm3 (150-375); Red Cell Distribution Width 13.8 % (11.5-14.5); White Blood Count 9.5 K/mm3 (4.5-10.0)
[2021-09-06 06:38] LABS: Anion Gap 8 mmol/L (8-16); Blood Urea Nitrogen 22 mg/dL (7-17); Calcium 8.6 mg/dL (8.4-10.2); Carbon Dioxide 31 mmol/L (22-30); Chloride 102 mmol/L (98-107); Estimated CRCL calculation 48 ml/min; Estimated Glomerular Filt Rate 42; Glucose 130 mg/dL (65-110); Potassium 3.8 mmol/L (3.4-5.0); Sodium 141 mmol/L (137-145)
[2021-09-06 08:00] VITALS: PULSE 78
[2021-09-06 08:13] LABS: Glucose Point of Care 115 mg/dl (65-105)
[2021-09-06 08:14] VITALS: PULSE 68
[2021-09-06] MEDS: ATORVASTATIN 20 MG TABLET PO (08:14)
[2021-09-06] MEDS: LOSARTAN POTASSIUM 100 MG TABLET PO (08:14)
[2021-09-06] MEDS: VITAMIN B COMPLEX CAPSULE 1 CAP PO (08:14)
[2021-09-06] MEDS: METOPROLOL SUCCINATE EXT REL 100 MG TABCR PO (08:14)
[2021-09-06] MEDS: POTASSIUM CHLORIDE 20 MEQ TABLET.ER 40 MEQ PO (08:14)
[2021-09-06] MEDS: FUROSEMIDE 40 MG TABLET PO (08:14)
[2021-09-06] MEDS: SPIRONOLACTONE 25 MG TABLET PO (08:14)
--- NOTE | 2021-09-06 10:01 | P.DS_ITS ---
DS: Admitting Diagnosis Discharge Date 09/06/2021 Admitting Diagnosis CHF DS: Discharge Diagnosis Discharge Diagnosis (1) Congestive heart failure: Qualifiers: Heart failure chronicity: acute Heart failure type: diastolic Qualified Code(s): I50.31 - Acute diastolic (congestive) heart failure Code(s): I50.9 - Heart failure, unspecified Status: Acute Assessment and Plan: Presented with increased shortness of breath and edema. BNP 3900. * CXR and CTA showed diffuse lung disease secondary to pulmonary edema * Echocardiogram showed EF 55-60% with abnormal diastolic dysfunction * She was seen in consultation by Cardiology * She had symptomatic improvement with IV diuresis. Will continue p.o. Lasix 40 mg daily and spironolactone 25 mg daily * Continue metoprolol succinate 100 mg daily * CHF education provided * Follow-up with cardiology as an outpatient (2) Renal failure: Code(s): N19 - Unspecified kidney failure Status: Acute Assessment and Plan: Creatinine 1.2 on presentation * Prior labs from 1 month prior showed creatinine of 1.4. She may have underlying CKD * Renal ultrasound was unremarkable * Creatinine 1.2-1.4 during admission. 1.3 at time of discharge * Repeat BMP in 1 week to ensure remaining stable (3) Normocytic anemia: Code(s): D64.9 - Anemia, unspecified Status: Acute Assessment and Plan: Hemoglobin and hematocrit remained stable * Iron panel, B12 and folate are normal (4) Essential (primary) hypertension: Code(s): I10 - Essential (primary) hypertension Status: Acute Assessment and Plan: Blood pressures were quite elevated on admission up to 200/100 * Improved with diuretics * BP normalized * Continue losartan, metoprolol, and furosemide (5) Obstructive sleep apnea on CPAP: Code(s): G47.33 - Obstructive sleep apnea (adult) (pediatric); Z99.89 - Dependence on other enabling machines and devices Status: Acute Assessment and Plan: Continue home CPAP (6) Type 2 diabetes mellitus without complications: Code(s): E11.9 - Type 2 diabetes mellitus without complications Status: Acute Assessment and Plan: A1c is 5.3. Blood sugars well controlled during admission * Managed with Accu-Cheks, sliding scale insulin, hypoglycemic protocol * Home sitagliptin and pioglitazone held until follow-up with PCP given concerns for congestive heart failure * Continue glimepiride (7) Hypokalemia: Code(s): E87.6 - Hypokalemia Status: Acute Assessment and Plan: Secondary to diuresis * Potassium supplement 20 mEq p.o. daily * Cautious potassium supplementation in light of potassium sparing diuretic use * Repeat BMP in 1 week and monitor potassium levels DS: Summary Hospital Course Hospital Course: Date of admission: 09/03/2021 Date of discharge: 09/06/2021 Kathy Morgan is a 61-year-old female with a history of hypertension, JANEL, type 2 diabetes mellitus who presented to the emergency department on 09/03/2021 with complaints of dyspnea on exertion worsening over a couple of weeks. On presentation she was found to have a markedly elevated blood pressure of 200/100 with BNP elevated at 4000 and CXR and CTA with findings of pulmonary edema. She was admitted to the hospitalist service for further evaluation and management and was seen in consultation by cardiology. Please see above for further details. She had overall improvement with diuresis and was feeling back t
--- NOTE | 2021-09-06 10:01 | PM.DS ---
DS: Admitting Diagnosis Discharge Date 09/06/2021 Admitting Diagnosis CHF DS: Discharge Diagnosis Discharge Diagnosis (1) Congestive heart failure: Qualifiers: Heart failure chronicity: acute Heart failure type: diastolic Qualified Code(s): I50.31 - Acute diastolic (congestive) heart failure Code(s): I50.9 - Heart failure, unspecified Status: Acute Assessment and Plan: Presented with increased shortness of breath and edema. BNP 3900. CXR and CTA showed diffuse lung disease secondary to pulmonary edema Echocardiogram showed EF 55-60% with abnormal diastolic dysfunction She was seen in consultation by Cardiology She had symptomatic improvement with IV diuresis. Will continue p.o. Lasix 40 mg daily and spironolactone 25 mg daily Continue metoprolol succinate 100 mg daily CHF education provided Follow-up with cardiology as an outpatient (2) Renal failure: Code(s): N19 - Unspecified kidney failure Status: Acute Assessment and Plan: Creatinine 1.2 on presentation Prior labs from 1 month prior showed creatinine of 1.4. She may have underlying CKD Renal ultrasound was unremarkable Creatinine 1.2-1.4 during admission. 1.3 at time of discharge Repeat BMP in 1 week to ensure remaining stable (3) Normocytic anemia: Code(s): D64.9 - Anemia, unspecified Status: Acute Assessment and Plan: Hemoglobin and hematocrit remained stable Iron panel, B12 and folate are normal (4) Essential (primary) hypertension: Code(s): I10 - Essential (primary) hypertension Status: Acute Assessment and Plan: Blood pressures were quite elevated on admission up to 200/100 Improved with diuretics BP normalized Continue losartan, metoprolol, and furosemide (5) Obstructive sleep apnea on CPAP: Code(s): G47.33 - Obstructive sleep apnea (adult) (pediatric); Z99.89 - Dependence on other enabling machines and devices Status: Acute Assessment and Plan: Continue home CPAP (6) Type 2 diabetes mellitus without complications: Code(s): E11.9 - Type 2 diabetes mellitus without complications Status: Acute Assessment and Plan: A1c is 5.3. Blood sugars well controlled during admission Managed with Accu-Cheks, sliding scale insulin, hypoglycemic protocol Home sitagliptin and pioglitazone held until follow-up with PCP given concerns for congestive heart failure Continue glimepiride (7) Hypokalemia: Code(s): E87.6 - Hypokalemia Status: Acute Assessment and Plan: Secondary to diuresis Potassium supplement 20 mEq p.o. daily Cautious potassium supplementation in light of potassium sparing diuretic use Repeat BMP in 1 week and monitor potassium levels DS: Summary Hospital Course Hospital Course: Date of admission: 09/03/2021 Date of discharge: 09/06/2021 Kathy Morgan is a 61-year-old female with a history of hypertension, JANEL, type 2 diabetes mellitus who presented to the emergency department on 09/03/2021 with complaints of dyspnea on exertion worsening over a couple of weeks. On presentation she was found to have a markedly elevated blood pressure of 200/100 with BNP elevated at 4000 and CXR and CTA with findings of pulmonary edema. She was admitted to the hospitalist service for further evaluation and management and was seen in consultation by cardiology. Please see above for further details. She had overall improvement with diuresis and was feeling back to her usual state of health. Given her overall improvement, she was determined to no longer require inpatient care and was felt to be stable for discharge. Discussed worrisome signs and symptoms for which to return and she was educated on her medications. She will follow-up with cardiology as an outpatient. She was discharged in hemodynamically stable condition on 09/06/2021. Status at Discharge Functional status at disc
== END 2021-09-06 11:40 | disposition home or self-care (01) | DRG 291 ==
LOC: ANHED 13:03 → ANH3MEDSUR 13:59
PROVIDERS: Nurse Practitioner Adult Health; Physician Assistant; Admitting Provider Family Medicine; Emergency Provider Emergency Medicine; PCP Family Medicine Adolescent Medicine; Visit Provider Internal Medicine
DX: I13.0 Hypertensive heart and chronic kidney disease with heart failure and stage 1 through stage 4 chronic kidney disease, or unspecified chronic kidney disease (principal); I50.31 Acute diastolic (congestive) heart failure; N17.9 Acute kidney failure, unspecified; D64.9 Anemia, unspecified; G47.33 Obstructive sleep apnea (adult) (pediatric); Z20.822 Contact with and (suspected) exposure to COVID-19; E87.6 Hypokalemia; T50.2X5A Adverse effect of carbonic-anhydrase inhibitors, benzothiadiazides and other diuretics, initial encounter; E78.5 Hyperlipidemia, unspecified; Z79.899 Other long term (current) drug therapy; Z79.84 Long term (current) use of oral hypoglycemic drugs; E11.22 Type 2 diabetes mellitus with diabetic chronic kidney disease; N18.9 Chronic kidney disease, unspecified; Z87.891 Personal history of nicotine dependence; Z79.4 Long term (current) use of insulin
CPT/HCPCS: 36415; 71046; 71275; 76775; 80048; 80053; 82607; 82728; 82746; 82948; 83036; 83540; 83550; 83735; 83880; 84132; 84145; 84439; 84443; 84480; 84484; 85025; 85027; 85380; 85610; 85730; 86140; 87040; 87502; 93005; 93306; 96365; 96367; 96375; 96376; 99285; A9270; C9803; G0378; J0456; J0696; J1940; Q9967; U0003; U0005

== ENCOUNTER 2021-09-14 12:17 | Outpatient (CLI) | payer BC, SELFPAY ==
[2021-09-14 12:41] LABS: Anion Gap 9 mmol/L (8-16); Blood Urea Nitrogen 38 mg/dL (7-17); Calcium 9.2 mg/dL (8.4-10.2); Carbon Dioxide 25 mmol/L (22-30); Chloride 103 mmol/L (98-107); Estimated Glomerular Filt Rate 33; Glucose 355 mg/dL (65-110); Potassium 4.9 mmol/L (3.4-5.0); Sodium 137 mmol/L (137-145)
== END 2021-09-14 12:18 | disposition home or self-care (01) ==
LOC: ANHLAB 12:19
PROVIDERS: PCP Family Medicine Adolescent Medicine; Visit Provider Physician Assistant
DX: E87.6 Hypokalemia (principal); N19 Unspecified kidney failure
CPT/HCPCS: 36415; 80048

== ENCOUNTER 2021-10-26 10:21 | Outpatient (CLI) | payer BC, SELFPAY ==
[2021-10-26 11:08] LABS: Anion Gap 8 mmol/L (8-16); Blood Urea Nitrogen 14 mg/dL (7-17); Calcium 8.6 mg/dL (8.4-10.2); Carbon Dioxide 28 mmol/L (22-30); Chloride 104 mmol/L (98-107); Estimated Glomerular Filt Rate 50; Glucose 270 mg/dL (65-110); Sodium 140 mmol/L (137-145)
== END 2021-10-26 10:22 | disposition home or self-care (01) ==
LOC: ANHLAB 10:24
PROVIDERS: PCP Family Medicine Adolescent Medicine; Visit Provider Nurse Practitioner
DX: I50.30 Unspecified diastolic (congestive) heart failure (principal)
CPT/HCPCS: 36415; 80048

== ENCOUNTER 2021-11-02 07:22 | Outpatient (CLI) | payer BC, SELFPAY ==
[2021-11-02 08:08] LABS: Anion Gap 8 mmol/L (8-16); Blood Urea Nitrogen 16 mg/dL (7-17); Calcium 8.4 mg/dL (8.4-10.2); Carbon Dioxide 32 mmol/L (22-30); Chloride 99 mmol/L (98-107); Estimated Glomerular Filt Rate 50; Glucose 217 mg/dL (65-110); Potassium 3.2 mmol/L (3.4-5.0); Sodium 139 mmol/L (137-145)
== END 2021-11-02 07:23 | disposition home or self-care (01) ==
LOC: ANHLAB 07:26
PROVIDERS: PCP Family Medicine Adolescent Medicine; Visit Provider Internal Medicine Cardiovascular Disease
DX: I50.30 Unspecified diastolic (congestive) heart failure (principal)
CPT/HCPCS: 36415; 80048

== ENCOUNTER 2021-12-01 09:38 | Outpatient (CLI) | payer BC, SELFPAY ==
[2021-12-01 10:19] LABS: Anion Gap 9 mmol/L (8-16); Blood Urea Nitrogen 59 mg/dL (7-17); Calcium 9.4 mg/dL (8.4-10.2); Carbon Dioxide 23 mmol/L (22-30); Chloride 103 mmol/L (98-107); Estimated Glomerular Filt Rate 23; Glucose 228 mg/dL (65-110); Potassium 6.1 mmol/L (3.4-5.0); Sodium 135 mmol/L (137-145)
== END 2021-12-01 09:39 | disposition home or self-care (01) ==
LOC: ANHLAB 09:43
PROVIDERS: PCP Family Medicine Adolescent Medicine; Visit Provider Internal Medicine Cardiovascular Disease
DX: I50.30 Unspecified diastolic (congestive) heart failure (principal)
CPT/HCPCS: 36415; 80048

== ENCOUNTER 2021-12-05 07:17 | Outpatient (CLI) | payer BC, SELFPAY ==
[2021-12-05 08:07] LABS: Anion Gap 10 mmol/L (8-16); Blood Urea Nitrogen 65 mg/dL (7-17); Calcium 8.8 mg/dL (8.4-10.2); Carbon Dioxide 22 mmol/L (22-30); Chloride 104 mmol/L (98-107); Estimated Glomerular Filt Rate 20; Glucose 163 mg/dL (65-110); Potassium 5.1 mmol/L (3.4-5.0); Sodium 136 mmol/L (137-145)
== END 2021-12-05 07:18 | disposition home or self-care (01) ==
LOC: ANHLAB 07:20
PROVIDERS: PCP Family Medicine Adolescent Medicine; Visit Provider Nurse Practitioner
DX: E87.5 Hyperkalemia (principal)
CPT/HCPCS: 36415; 80048

== ENCOUNTER 2021-12-13 07:06 | Outpatient (CLI) | payer BC, SELFPAY ==
[2021-12-13 07:51] LABS: Anion Gap 7 mmol/L (8-16); Blood Urea Nitrogen 21 mg/dL (7-17); Calcium 8.7 mg/dL (8.4-10.2); Carbon Dioxide 25 mmol/L (22-30); Chloride 108 mmol/L (98-107); Estimated Glomerular Filt Rate 38; Glucose 145 mg/dL (65-110); Potassium 4.2 mmol/L (3.4-5.0); Sodium 140 mmol/L (137-145)
== END 2021-12-13 07:07 | disposition home or self-care (01) ==
LOC: ANHLAB 07:09
PROVIDERS: PCP Family Medicine Adolescent Medicine; Visit Provider Internal Medicine Cardiovascular Disease
DX: I50.30 Unspecified diastolic (congestive) heart failure (principal)
CPT/HCPCS: 36415; 80048

== ENCOUNTER 2021-12-27 07:14 | Outpatient (CLI) | payer BC, SELFPAY ==
[2021-12-27 09:08] LABS: Anion Gap 10 mmol/L (8-16); Blood Urea Nitrogen 27 mg/dL (7-17); CRP 2.4 mg/dL (<1.0); Calcium 9.2 mg/dL (8.4-10.2); Carbon Dioxide 31 mmol/L (22-30); Chloride 101 mmol/L (98-107); Creatine Kinase 61 U/L (30-135); Estimated Glomerular Filt Rate 35; Glucose 215 mg/dL (65-110); Potassium 3.9 mmol/L (3.4-5.0); Sodium 142 mmol/L (137-145)
[2021-12-27 09:38] LABS: Erythrocyte Sedimentation Rate 55 mm/hr (0-20)
== END 2021-12-27 07:15 | disposition home or self-care (01) ==
PROVIDERS: PCP Family Medicine Adolescent Medicine; Visit Provider Nurse Practitioner Adult Health
DX: N18.32 Chronic kidney disease, stage 3b (principal)
CPT/HCPCS: 36415; 80048; 82085; 82550; 85652; 86140

== ENCOUNTER 2022-03-22 15:54 | Outpatient (CLI) | payer BC, SELFPAY ==
[2022-03-22 16:37] LABS: Anion Gap 10 mmol/L (8-16); Blood Urea Nitrogen 21 mg/dL (7-17); Carbon Dioxide 33 mmol/L (22-30); Chloride 97 mmol/L (98-107); Estimated Glomerular Filt Rate 46; Glucose 180 mg/dL (65-110); Potassium 3.4 mmol/L (3.4-5.0); Sodium 140 mmol/L (137-145)
== END 2022-03-22 15:55 | disposition home or self-care (01) ==
LOC: ANHLAB 15:57
PROVIDERS: PCP Family Medicine Adolescent Medicine; Visit Provider Internal Medicine Cardiovascular Disease
DX: I50.32 Chronic diastolic (congestive) heart failure (principal); I12.9 Hypertensive chronic kidney disease with stage 1 through stage 4 chronic kidney disease, or unspecified chronic kidney disease; N18.32 Chronic kidney disease, stage 3b
CPT/HCPCS: 36415; 80048

== ENCOUNTER → 2022-05-08 15:06 | Outpatient (CLI) | payer BC, SELFPAY ==
--- NOTE | ~2022-05-08 | MR_ITS ---
EXAMINATION: MR knee RT wo con DATE: 05/08/2022 15:54 INDICATION: Right knee locking TECHNIQUE: Magnetic resonance imaging (MRI) of the right knee was performed without intravenous contr ast. Sequences included coronal PD-weighted FSE, coronal PD-weighted FS FSE, sagittal T2-weighted FS E, sagittal PD-weighted FS FSE and axial PD weighted fat saturated FSE. COMPARISON: None. FINDINGS: Medial compartment: Medial meniscus is normal. Mild partial-thickness cartilage loss with smooth chondral surface along t he medial tibial plateau and weightbearing medial femoral condyle. Lateral compartment: Lateral meniscus is normal. Minimal cortical irregularity along the articular surface at the anterior weightbearing lateral femoral condyle underlying the region of deep chondral fissuring. Remaining ca rtilage in the lateral compartment is normal. Patellofemoral compartment: Linear fluid signal consistent with inflammation at the bone chondral interface extending for a few m illimeter peripherally from a deep chondral ulceration at the lateral superolateral margin of the lat eral patellar facet. There is underlying subarticular cystlike and edema-like signal change underlyin g the region of deep ulceration. Partial-thickness chondral fissure at the central aspect of the late ral patellar facet at the medial facet where there is a tiny focus of subarticular edema-like signal change. Partial-thickness chondral ulceration along the patellar apical ridge. Ligaments and tendons: Anterior and posterior cruciate ligaments are normal. Mild thickening at the proximal medial collater al ligament consistent with mild scarring related to chronic sprain. The fibular collateral ligament complex is normal. Patellar tendon is normal. Mild tendinopathy at the distal quadriceps tendon. The visualized medial and lateral hamstring tendons as well as the iliotibial band are normal. Fluid: Physiologic amount of fluid in the joint space. No loose osteochondral bodies identified. Small Marques 's cyst measuring 8.9 cm craniocaudally and up to 2.4 x 0.4 cm in maximal transaxial dimensions. Osseous/other: Normal marrow signal. No fracture or pathologic marrow replacing process. IMPRESSION: 1. Tricompartmental osteoarthritis at the right knee, mild to moderate severity in the patellofemoral compartment with high-grade patellar chondromalacia and mild in the medial and lateral compartments with additional small region of high-grade chondromalacia along the anterior weightbearing lateral fe moral condyle. 2. Mild tendinopathy of the distal quadriceps tendon and mild scarring at the proximal medial collate ral ligament likely sequela of chronic sprain. 3. Moderate-sized Marques's cyst. Reviewed, dictated and finalized at location A. LOGIST IMPRESSION: 1. Tricompartmental osteoarthritis at the right knee, mild to moderate severity in the patellofemoral compartment with high-grade patellar chondromalacia and mild in the medial and lateral compartments with additional small region of hig h-grade chondromalacia along the anterior weightbearing lateral femoral condyle . 2. Mild tendinopathy of the distal quadriceps tendon and mild scarring at the p roximal medial collateral ligament likely sequela of chronic sprain. 3. Moderate-sized Marques's cyst.
== END ==
PROVIDERS: PCP Family Medicine Adolescent Medicine; Visit Provider Family Medicine Adolescent Medicine
DX: M17.11 Unilateral primary osteoarthritis, right knee (principal); M71.21 Synovial cyst of popliteal space [Baker], right knee
CPT/HCPCS: 73721

== ENCOUNTER 2022-05-22 15:31 | Outpatient (CLI) | payer BC, SELFPAY ==
[2022-05-22 15:59] LABS: Hemoglobin A1C 7.7 % (<5.7)
== END 2022-05-22 15:32 | disposition home or self-care (01) ==
LOC: ANHLAB 15:32
PROVIDERS: PCP Family Medicine Adolescent Medicine; Visit Provider Family Medicine Adolescent Medicine
DX: E11.65 Type 2 diabetes mellitus with hyperglycemia (principal)
CPT/HCPCS: 36415; 83036

== ENCOUNTER 2023-01-09 12:04 | Outpatient (CLI) | payer BC, SELFPAY ==
--- NOTE | ~2023-01-09 | XR_ITS ---
EXAMINATION: XR foot RT 2V, XR ankle RT min 3V DATE: 01/09/2023 12:20 INDICATION: Right foot and ankle pain for one week after working out TECHNIQUE: 1. Anteroposterior and lateral view of the right ankle were obtained. 2. Dorsoplantar and lateral views of the right foot were obtained. COMPARISON: None. FINDINGS: Alignment of the right foot and ankle is normal. No fracture or osteochondral lesion. Mild polyarticu lar osteoarthritis at the first metatarsophalangeal and multiple tarsometatarsal and interphalangeal joints. Small Achilles and plantar calcaneal spurs. No ankle joint effusion. Extensive scattered vasc ular calcifications at the right foot, ankle and visualized lower leg. IMPRESSION: 1. Mild degenerative skeletal changes in the right foot. No acute osseous abnormality at the right fo ot or ankle. Reviewed, dictated and finalized at location A. IMPRESSION: 1. Mild degenerative skeletal changes in the right foot. No acute osseous abnor mality at the right foot or ankle.
== END 2023-01-09 12:05 ==
PROVIDERS: PCP Family Medicine Adolescent Medicine; Visit Provider Nurse Practitioner Family
DX: S99.921A Unspecified injury of right foot, initial encounter (principal); X58.XXXA Exposure to other specified factors, initial encounter
CPT/HCPCS: 73610; 73620

== ENCOUNTER 2023-04-01 10:45 | Outpatient (CLI) | payer BC, SELFPAY ==
[2023-04-01 11:21] LABS: Basophils Absolute Auto 0.1 K/mm3 (0.0-0.1); Basophils Percent Auto 0.4 % (0.2-1.2); Eosinophils Absolute Auto 0.2 K/mm3 (0-0.3); Eosinophils Percent Auto 1.4 % (0-4.4); Hematocrit 34.7 % (37.0-47.0); Immature Granulocyte Absolute 0.06 K/mm3 (0.00-0.031); Immature Granulocyte Percent A 0.5 % (0-0.5); Lymphocytes Absolute Auto 1.15 K/mm3 (0.9-3.2); Lymphocytes Percent Auto 10.2 % (18.3-44.2); Mean Corpuscular HGB Conc 31.7 g/dl (32-36); Mean Corpuscular Hemoglobin 29.3 pg (26-34); Mean Corpuscular Volume 92.5 fl (80-100); Mean Platelet Volume 9.5 fl (7.4-10.4); Monocytes Absolute Auto 0.5 K/mm3 (0.1-0.6); Monocytes Percent Auto 4.3 % (2.6-8.5); Neutrophils Absolute Auto 9.4 K/mm3 (1.3-6.7); Neutrophils Percent Auto 83.2 % (45.5-73.1); Platelet Count Result 280 k/mm3 (150-375); Red Blood Count 3.75 M/mm3 (4.2-5.4); Red Cell Distribution Width 12.9 % (11.5-14.5); White Blood Count 11.3 K/mm3 (4.5-10.0)
[2023-04-01 11:31] LABS: CRP 8.1 mg/dL (<1.0); Uric Acid 10.7 mg/dL (2.5-7.5)
[2023-04-01 11:32] LABS: Rheumatoid Factor < 12.0 IU/ML (<12)
[2023-04-01 11:52] LABS: Erythrocyte Sedimentation Rate 33 mm/hr (0-20)
[2023-04-04 14:46] LABS: HLA B27 Negative (Negative)
== END 2023-04-01 10:46 | disposition home or self-care (01) ==
LOC: ANHLAB 10:47
PROVIDERS: PCP Family Medicine Adolescent Medicine; Visit Provider Podiatrist Foot & Ankle Surgery
DX: M10.9 Gout, unspecified (principal); M06.9 Rheumatoid arthritis, unspecified; L03.90 Cellulitis, unspecified
CPT/HCPCS: 36415; 84550; 85025; 85652; 86038; 86140; 86430; 86812

== ENCOUNTER 2023-04-09 14:34 | Outpatient (CLI) | payer BC, SELFPAY ==
[2023-04-09 15:16] LABS: Alanine Aminotransferase 16 U/L (6-35); Albumin Level 4.3 g/dL (3.5-5.1); Alkaline Phosphatase 104 U/L (38-126); Anion Gap 10 mmol/L (8-16); Aspartate Amino Transferase 24 U/L (14-36); Bilirubin,Total 0.7 mg/dL (0.2-1.3); Blood Urea Nitrogen 27 mg/dL (7-17); Calcium 9.6 mg/dL (8.4-10.2); Carbon Dioxide 27 mmol/L (22-30); Chloride 102 mmol/L (98-107); Cholesterol 128 mg/dL (0-200); Estimated Glomerular Filt Rate 30; Glucose 118 mg/dL (65-110); HDL Direct 39 mg/dL; Sodium 139 mmol/L (137-145); Triglycerides 116 mg/dL (<150)
[2023-04-09 15:27] LABS: LDL Cholesterol Direct 55 mg/dL
[2023-04-09 16:04] LABS: Hemoglobin A1C 5.6 % (<5.7)
[2023-04-12 11:00] LABS: Immunoglobulin A 275 mg/dL (70-320); TTG IGA AB <1.0 U/mL (<15.0)
== END 2023-04-09 14:35 | disposition home or self-care (01) ==
LOC: ANHLAB 14:35
PROVIDERS: PCP Family Medicine Adolescent Medicine; Visit Provider Family Medicine Adolescent Medicine
DX: E11.65 Type 2 diabetes mellitus with hyperglycemia (principal); I10 Essential (primary) hypertension; K52.9 Noninfective gastroenteritis and colitis, unspecified
CPT/HCPCS: 36415; 80053; 80061; 82784; 83036; 86364

== ENCOUNTER 2023-04-24 14:58 | Outpatient (CLI) | payer BC, SELFPAY ==
[2023-04-24 15:23] LABS: Hematocrit 32.4 % (37.0-47.0); Hemoglobin 10.1 g/dL (12.0-15.0); Mean Corpuscular HGB Conc 31.2 g/dl (32-36); Mean Corpuscular Hemoglobin 28.7 pg (26-34); Platelet Count Result 285 k/mm3 (150-375); Red Blood Count 3.52 M/mm3 (4.2-5.4); Red Cell Distribution Width 13.6 % (11.5-14.5); White Blood Count 10.4 K/mm3 (4.5-10.0)
[2023-04-24 15:40] LABS: Alanine Aminotransferase 18 U/L (6-35); Albumin Level 4.4 g/dL (3.5-5.1); Alkaline Phosphatase 118 U/L (38-126); Anion Gap 11 mmol/L (8-16); Aspartate Amino Transferase 25 U/L (14-36); Bilirubin,Total 0.7 mg/dL (0.2-1.3); Blood Urea Nitrogen 22 mg/dL (7-17); Calcium 9.4 mg/dL (8.4-10.2); Carbon Dioxide 25 mmol/L (22-30); Chloride 104 mmol/L (98-107); Estimated Glomerular Filt Rate 38; Glucose 157 mg/dL (65-110); Lipase 150 U/L (23-300); Potassium 4.5 mmol/L (3.4-5.0); Sodium 140 mmol/L (137-145)
[2023-04-24 16:02] LABS: Erythrocyte Sedimentation Rate 99 mm/hr (0-20)
== END 2023-04-24 14:59 | disposition home or self-care (01) ==
LOC: ANHLAB 14:59
PROVIDERS: PCP Family Medicine Adolescent Medicine; Visit Provider Nurse Practitioner
DX: K92.89 Other specified diseases of the digestive system (principal); R10.13 Epigastric pain; R19.7 Diarrhea, unspecified
CPT/HCPCS: 36415; 80053; 83690; 84443; 85027; 85652; 86140

== ENCOUNTER 2023-04-25 12:51 | Outpatient (CLI) | payer BC, SELFPAY ==
[2023-04-25 14:25] LABS: Toxigenic C. Diff NEGATIVE (NEGATIVE)
[2023-05-03 19:37] LABS: Calprotectin, Stool 85 mcg/g; Pancreatic Elastase, Stool 459 mcg/g
== END 2023-04-25 12:52 | disposition home or self-care (01) ==
LOC: ANHLAB 12:53
PROVIDERS: PCP Family Medicine Adolescent Medicine; Visit Provider Nurse Practitioner
DX: R19.7 Diarrhea, unspecified (principal); K92.89 Other specified diseases of the digestive system; R10.13 Epigastric pain
CPT/HCPCS: 82653; 83993; 87045; 87269; 87427; 87449; 87493

== ENCOUNTER 2023-05-06 14:05 | Emergency (ER) | payer BC, SELFPAY ==
--- NOTE | ~2023-05-06 | XR_ITS ---
EXAMINATION: XR chest 2V DATE: 05/06/2023 14:43 INDICATION: Shortness of breath TECHNIQUE: PA and lateral views of the chest are obtained. COMPARISON: 09/03/2021 FINDINGS: The lungs are free of acute opacities. No pleural effusion or pneumothorax. The cardiomedia stinal silhouette is normal. There is moderate thoracic spondylosis. Cholecystectomy clips are noted. IMPRESSION: 1. No acute cardiopulmonary abnormality. Reviewed, dictated and finalized at location B. ER PRINTER
[2023-05-06 14:14] VITALS: BP 127/68; PULSE 88; RESP 19; TEMP 36.4; O2SAT 100
--- NOTE | 2023-05-06 14:14 | ECG_ITS ---
Measurements Intervals [place] Rate: 90 P: [place]: 0 QRS: -10 QRSD: 82 T: -26 QT: 359 QTc: 440 Interpretive Statements SINUS OR ECTOPIC ATRIAL RHYTHM LOW QRS VOLTAGE IN PRECORDIAL LEADS BORDERLINE T WAVE ABNORMALITY- ANTEROLAT/INF LEADS BASELINE ARTIFACT- V6 BORDERLINE ECG COMPARED TO ECG 09/03/2021 10:42:00 NO SIGNIFICANT CHANGES Electronically Signed On 05-06-2023 14:48:44 [employer] by José Miguel Balderas D.O.
[2023-05-06 14:32] LABS: Basophils Absolute Auto 0.1 K/mm3 (0.0-0.1); Basophils Percent Auto 1.4 % (0.2-1.2); Eosinophils Absolute Auto 0.5 K/mm3 (0-0.3); Eosinophils Percent Auto 4.8 % (0-4.4); Hematocrit 32.2 % (37.0-47.0); Hemoglobin 10.1 g/dL (12.0-15.0); Lymphocytes Absolute Auto 1.16 K/mm3 (0.9-3.2); Lymphocytes Percent Auto 11.3 % (18.3-44.2); Mean Corpuscular HGB Conc 31.4 g/dl (32-36); Mean Corpuscular Volume 92.5 fl (80-100); Mean Platelet Volume 9.3 fl (7.4-10.4); Monocytes Absolute Auto 0.4 K/mm3 (0.1-0.6); Neutrophils Percent Auto 77.5 % (45.5-73.1); Platelet Count Result 254 k/mm3 (150-375); Red Blood Count 3.48 M/mm3 (4.2-5.4); Red Cell Distribution Width 14.9 % (11.5-14.5); White Blood Count 10.3 K/mm3 (4.5-10.0)
[2023-05-06 14:42] LABS: Alanine Aminotransferase 21 U/L (6-35); Albumin Level 4.4 g/dL (3.5-5.1); Alkaline Phosphatase 97 U/L (38-126); Anion Gap 11 mmol/L (8-16); Aspartate Amino Transferase 27 U/L (14-36); Bilirubin,Total 0.5 mg/dL (0.2-1.3); Blood Urea Nitrogen 33 mg/dL (7-17); Calcium 9.4 mg/dL (8.4-10.2); Carbon Dioxide 25 mmol/L (22-30); Chloride 104 mmol/L (98-107); Estimated CRCL calculation 29 ml/min; Estimated Glomerular Filt Rate 25; Glucose 196 mg/dL (65-110); Potassium 4.1 mmol/L (3.4-5.0); Sodium 140 mmol/L (137-145)
[2023-05-06 14:54] LABS: NT Pro B Type Natriuretic Pept 318 pg/mL (19.9-100); Troponin I < 0.012 ng/mL (0.000-0.034)
--- NOTE | 2023-05-06 14:54 | ED.GENADULT ---
HPI - General Adult General Chief complaint: Shortness of Breath/Dyspnea Stated complaint: sob History of Present Illness HPI narrative: Kathy Morgan is a 62 y/o female who presents with reports of increased SOB on exertion for about 2 weeks. She reports of increased fatigue/ chills/ sleeping more even almost 24 hours straight over the weekend. HX of CHF, denies any new swelling/ weight gain/ she has been taking her medications as prescribed. Reports that it took her almost two hours to take a shower because she gets worn out so quick. Denies chest pain Related Data Home Medications Medication Instructions Recorded Confirmed ibuprofen 200 mg capsule 200 mg PO Q6H PRN 01/09/23 04/24/23 allopurinol 100 mg tablet 100 mg PO TID 04/09/23 04/24/23 semaglutide 1 mg/dose (2 mg/1.5 1 mg subcut WEEKLY 04/24/23 04/24/23 mL) subcutaneous pen injector (Ozempic) Allergies Allergy/AdvReac Type Severity Reaction Status Date / Time adhesive Allergy Unknown PLASTIC Verified 04/24/23 08:22 TAPE BLISTERS/ITCHING PMFSH Past Medical History Medical History (Updated 05/07/23 @ 08:56 by Dede Buck, ARRANGER ASSEMBLER) BMI 37.0-37.9, adult Diarrhea Diverticulitis Epigastric pain Gas bloat syndrome GERD (gastroesophageal reflux disease) History of stress test Hyperlipidemia Leukocytosis Major depressive disorder, recurrent, mild Obstructive sleep apnea on CPAP Renal failure Surgical History Surgical History History of bladder suspension procedure (1992) History of carpal tunnel surgery of left wrist (2005) History of hysterectomy with oophorectomy (1992) History of laparoscopic cholecystectomy (2007) History of tubal ligation (1988) Status post excision of lipoma (2005) Left volar wrist Family History Family History (Updated 04/24/23 @ 14:11 by REJI John) Mother Diabetes mellitus Dementia Father Heart disease Hypertension COPD (chronic obstructive pulmonary disease) Sibling Heart disease Social History Social History (Updated 04/24/23 @ 14:12 by REJI John) Social History: Surrogate decision maker: Enoch Morgan, . Code status: Full code. Years smoked: 5 Smoking status: Former smoker Tobacco type: cigarettes Second hand tobacco smoke exposure: Yes Alcohol intake: current Alcohol use details: Rare alcohol socially and in moderation. Substance use: current Substance use type: marijuana Other substance usage details: uses for pain relief Lack of Transportation: No Lack of Food: Never True Current Housing: I Have Housing Concerned About Future Housing: No Difficulty Paying Gas/Electric Bills: No Difficulty Paying for Meds: No Currently Unemployed: No Education: Trade/Vocational Certificate Difficulty w/ Childcare or Family Care: No Living arrangements: with family Additional living arrangements comments: The patient lives in [place] with her . 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 Gender identity (if verbalized by the patient): Female Course Vital Signs Vital signs: Vital Signs Temperature 36.4 C 05/06/23 14:14 Pulse Rate 88 05/06/23 14:14 Respiratory Rate 19 05/06/23 14:14 Blood Pressure 127/68 05/06/23 14:14 Pulse Oximetry 100 05/06/23 14:14 Oxygen Delivery Room Air 05/06/23 14:14 Temperature 36.6 C 05/06/23 19:01 Pulse Rate 95 05/06/23 19:01 Respiratory Rate 20 05/06/23 19:01 Blood Pressure 115/68 05/06/23 19:01 Pulse Oximetry 100 05/06/23 19:01 Oxygen Delivery Room Air 05/06/23 14:14 Medical Decision Making Vital Signs Vital Signs: Vital Signs Temperature 36.4 C 05/06/23 14:14 Pulse Rate 88 05/06/23 14:14 Respiratory Rate 19 05/06/23 14:14 Blood Pressure 127/68
--- NOTE | 2023-05-06 15:45 | PC.NURSE ---
covid swab recollected and sent
[2023-05-06 16:27] LABS: Influenza A QL RT-PCR Negative (Negative); Influenza B QL RT-PCR Negative (Negative); RSV RNA, RT-PCR Negative (Negative); SARS-CoV-2 RNA PCR Negative (Negative)
[2023-05-06 19:01] VITALS: BP 115/68; PULSE 95; RESP 20; TEMP 36.6; O2SAT 100
== END 2023-05-06 15:45 | disposition left against medical advice (07) ==
PROVIDERS: Emergency Medicine; Emergency Provider Nurse Practitioner Family; PCP Family Medicine Adolescent Medicine
DX: R53.83 Other fatigue (principal); Z20.822 Contact with and (suspected) exposure to COVID-19; E78.5 Hyperlipidemia, unspecified; N19 Unspecified kidney failure; G47.33 Obstructive sleep apnea (adult) (pediatric); K21.9 Gastro-esophageal reflux disease without esophagitis; Z87.891 Personal history of nicotine dependence; Z90.710 Acquired absence of both cervix and uterus; Z90.49 Acquired absence of other specified parts of digestive tract; Z79.85 Long-term (current) use of injectable non-insulin antidiabetic drugs; Z79.84 Long term (current) use of oral hypoglycemic drugs
CPT/HCPCS: 36415; 71046; 80053; 83880; 84484; 85025; 85610; 85730; 87637; 93005; 99284

== ENCOUNTER 2023-05-28 02:56 | Day surgery (SDC) | payer BC, SELFPAY ==
[2023-05-13 08:12] VITALS: BMI 36.1
--- NOTE | 2023-05-27 09:32 | SUR.PREOP ---
Patient called regarding upcoming procedure. Reviewed preop instructions, appointment times, and procedure prep.
[2023-05-28 10:19] VITALS: BP 127/68; PULSE 83; RESP 16; TEMP 36.2; O2SAT 100; BMI 35.7
[2023-05-28 10:28] LABS: Glucose Point of Care 142 mg/dl (65-105)
[2023-05-28] MEDS: LACTATED RINGERS 1,000 ML 150 ML IV CONT (10:35)
--- NOTE | 2023-05-28 10:52 | PM.HPGS ---
History of Present Illness History of Present Illness Consent: Risks, benefits, and alternatives have been discussed and questions answered. Patient agrees to proceed with procedure. Chief complaint: diarrhea, epigastric pain, GERD Narrative: Kathy Morgan is a 63 year old female with diarrhea but lately better and BM near baseline, also gerd on ppi, never had scopes. Stool sample negative, no EPI, normal stool calprotectin. Review of Systems Constitutional: Constitutional: Denies headache(s) and Denies weakness Eyes: Eyes: Denies blurry vision ENT: Reports Normal hearing present, Denies headache(s) and Denies neck pain Cardiovascular: Cardiovascular: Denies chest pain and Denies dyspnea Respiratory: Respiratory: Denies dyspnea Gastrointestinal: Gastrointestinal: Reports no additional gastrointestinal complaints Genitourinary: Genitourinary: Denies dysuria Musculoskeletal: Musculoskeletal: Denies neck pain Integumentary/Breasts: Skin/Breast: Denies dry skin Neurologic: Reports Normal hearing present, Denies headache(s) and Denies weakness Psychiatric: Psychiatric: Denies anxiety Endocrine: Endocrine: Denies change in body appearance Hematologic/Lymphatic: Hematologic/Lymphatic: Denies easy bleeding Allergic/Immunologic: Allergic/Immunologic: Denies urticaria PMF Past Medical History Medical History (Updated 05/08/23 @ 00:00 by Background Daemon) BMI 37.0-37.9, adult Diarrhea Diverticulitis Epigastric pain Gas bloat syndrome GERD (gastroesophageal reflux disease) History of stress test Hyperlipidemia Leukocytosis Major depressive disorder, recurrent, mild Obstructive sleep apnea on CPAP Renal failure Surgical History Surgical History History of bladder suspension procedure (1992) History of carpal tunnel surgery of left wrist (2005) History of hysterectomy with oophorectomy (1992) History of laparoscopic cholecystectomy (2007) History of tubal ligation (1988) Status post excision of lipoma (2005) Left volar wrist Family History Family History (Updated 04/24/23 @ 14:11 by REJI John) Mother Diabetes mellitus Dementia Father Heart disease Hypertension COPD (chronic obstructive pulmonary disease) Sibling Heart disease Social History Social History (Updated 04/24/23 @ 14:12 by REJI John) Social History: Surrogate decision maker: Enoch Morgan, . Code status: Full code. Years smoked: 5 Smoking status: Former smoker Tobacco type: cigarettes Second hand tobacco smoke exposure: Yes Alcohol intake: never Substance use: current Substance use type: marijuana Other substance usage details: uses for pain relief Lack of Transportation: No Lack of Food: Never True Current Housing: I Have Housing Concerned About Future Housing: No Difficulty Paying Gas/Electric Bills: No Difficulty Paying for Meds: No Currently Unemployed: No Education: Trade/Vocational Certificate Difficulty w/ Childcare or Family Care: No Living arrangements: with family Additional living arrangements comments: The patient lives in [place] with her . 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
--- NOTE | 2023-05-28 10:54 | WPDANESEPPF ---
Anes - Initial Pre Proc Eval Procedure: Operation Date: 05/28/23 11:30 Proposed Procedures p Esophagogastroduodenoscopy & Colonoscopy - Ovidio Jo MD Date/Time: 05/28/23 10:54 Surgeon: Ovidio Jo MD Pre Op Diagnosis: diarrhea, epigastric pain, GERD Patient Data Age: 63 Gender: F Height: 1.6 m Weight: 91.5 kg Last Vital Signs Temp 97.2 F L 05/28/23 10:19 Pulse 83 05/28/23 10:19 Resp 16 05/28/23 10:19 BP 127/68 05/28/23 10:19 Pulse Ox 100 05/28/23 10:19 O2 Del Method Room Air 05/28/23 10:19 Allergies Allergy/AdvReac Type Severity Reaction Status Date / Time adhesive Allergy Unknown PLASTIC Verified 05/28/23 10:18 TAPE BLISTERS/ITCHING Home Medications Medication Instructions Recorded Confirmed Type furosemide 40 mg tablet 40 mg PO QAM #30 tabs 09/06/21 05/28/23 Rx ibuprofen 200 mg capsule 200 mg PO Q6H PRN insomnia 01/09/23 05/28/23 History atorvastatin 20 mg tablet 20 mg PO DAILY #30 tabs 02/04/23 05/28/23 Rx metoprolol tartrate 100 mg tablet 100 mg PO BID #56 tabs 02/04/23 05/28/23 Rx zolpidem 10 mg tablet 10 mg PO QHS #30 tabs 02/28/23 05/28/23 Rx allopurinol 100 mg tablet 100 mg PO TID 04/09/23 05/28/23 History semaglutide 1 mg/dose (2 mg/1.5 1 mg subcut WEEKLY 04/24/23 05/28/23 History mL) subcutaneous pen injector (Ozempic) doxazosin 2 mg tablet 2 mg PO DAILY #30 tabs 05/06/23 05/28/23 Rx losartan 50 mg tablet 50 mg PO DAILY #28 tabs 05/06/23 05/28/23 Rx pantoprazole 40 mg tablet,delayed 40 mg PO QHS #30 tabs 05/06/23 05/28/23 Rx release empagliflozin 25 mg tablet 25 mg PO DAILY #30 tabs 05/08/23 05/28/23 Rx (Jardiance) melatonin 5 mg chewable tablet 10 mg PO HS PRN Insomnia 05/13/23 05/28/23 History indomethacin 50 mg capsule 50 mg PO TID #90 caps 05/14/23 05/28/23 Rx Laboratory Tests 05/28/23 10:25 POC Capillary Glucose 142 H mg/dl (65-105) Patient hx anesthesia problems: none Family hx anesthesia problems: none Results Review: All pre-operative results and documents have been reviewed as part of the pre-operative evaluation. [facility] Past Medical History Medical History (Updated 05/08/23 @ 00:00 by [facility]) BMI 37.0-37.9, adult Diarrhea Diverticulitis Epigastric pain Gas bloat syndrome GERD (gastroesophageal reflux disease) History of stress test Hyperlipidemia Leukocytosis Major depressive disorder, recurrent, mild Obstructive sleep apnea on CPAP Renal failure Surgical History Surgical History History of bladder suspension procedure (1992) History of carpal tunnel surgery of left wrist (2005) History of hysterectomy with oophorectomy (1992) History of laparoscopic cholecystectomy (2007) History of tubal ligation (1988) Status post excision of lipoma (2005) Left volar wrist Family History Family History (Updated 04/24/23 @ 14:11 by REJI John) Mother Diabetes mellitus Dementia Father Heart disease Hypertension COPD (chronic obstructive pulmonary disease) Sibling Heart disease Social History Social History (Updated 04/24/23 @ 14:12 by REJI John) Social History: Surrogate decision maker: Enoch Morgan, . Code status: Full code. Years smoked: 5 Smoking status: Former smoker Tobacco type: cigarettes Second hand tobacco smoke exposure: Yes Alcohol intake: never Substance use: current Substance use type: marijuana Other substance usage details: uses for pain relief Lack of Transportation: No Lack of Food: Never True Current Housing: I Have Housing Concerned About Future Housing: No Difficulty Paying Gas/Electric Bills: No Difficulty Paying for Meds: No Currently Unemployed: No Education: Trade/Vocational Certificate Difficulty w/ Childcare or Family Care: No Living arrangements: with family Additional living arrangements co
[2023-05-28] MEDS: BENZOCAINE (*SP) 60 ML SPRAY CAN (HURRICAINE) 1 SPRAY MUCOUS MEM (10:57)
--- NOTE | 2023-05-28 11:06 | SUR.OPER ---
EGD START: 1058; END: 1101. COLONOSCOPY START: 1105; END: 1114.
[2023-05-28 11:18] VITALS: BP 75/44; PULSE 80; RESP 17; O2SAT 100
[2023-05-28 11:28] VITALS: BP 111/71; PULSE 75; RESP 15; O2SAT 100
[2023-05-28 11:38] VITALS: BP 103/55; PULSE 81; RESP 21; O2SAT 100
== END 2023-05-28 11:53 | disposition home or self-care (01) ==
PROVIDERS: PCP Family Medicine Adolescent Medicine; Visit Provider Internal Medicine Gastroenterology
PROC: 0DJ08ZZ Inspection of Upper Intestinal Tract, Via Natural or Artificial Opening Endoscopic (ICD-10-PCS; CPT 43235; principal; 2023-05-28 11:30)
DX: R19.7 Diarrhea, unspecified (principal); D12.3 Benign neoplasm of transverse colon; K57.30 Diverticulosis of large intestine without perforation or abscess without bleeding; K64.8 Other hemorrhoids; E78.5 Hyperlipidemia, unspecified; G47.33 Obstructive sleep apnea (adult) (pediatric); Z87.891 Personal history of nicotine dependence
CPT/HCPCS: 45380; 45385; 43239; 82948; 88305; J2704; J7120

== ENCOUNTER 2023-07-04 14:32 | Outpatient (CLI) | payer BC, SELFPAY ==
[2023-07-04 15:08] LABS: Alanine Aminotransferase 14 U/L (6-35); Albumin Level 4.1 g/dL (3.5-5.1); Alkaline Phosphatase 98 U/L (38-126); Anion Gap 8 mmol/L (8-16); Aspartate Amino Transferase 26 U/L (14-36); Bilirubin,Total 0.6 mg/dL (0.2-1.3); Blood Urea Nitrogen 13 mg/dL (7-17); Calcium 9.2 mg/dL (8.4-10.2); Carbon Dioxide 33 mmol/L (22-30); Chloride 99 mmol/L (98-107); Estimated Glomerular Filt Rate 50; Glucose 125 mg/dL (65-110); Potassium 3.3 mmol/L (3.4-5.0); Sodium 140 mmol/L (137-145); Uric Acid 4.9 mg/dL (2.5-7.5)
== END 2023-07-04 14:33 | disposition home or self-care (01) ==
LOC: ANHLAB 14:34
PROVIDERS: PCP Family Medicine Adolescent Medicine; Visit Provider Podiatrist Foot & Ankle Surgery
DX: M10.079 Idiopathic gout, unspecified ankle and foot (principal)
CPT/HCPCS: 36415; 80053; 84550

== ENCOUNTER 2024-04-27 09:32 | Outpatient (CLI) | payer BC, SELFPAY ==
[2024-04-27 10:18] LABS: Hematocrit 35.8 % (37.0-47.0); Hemoglobin 11.4 g/dL (12.0-15.0); Mean Corpuscular HGB Conc 31.8 g/dl (32-36); Mean Corpuscular Hemoglobin 29.2 pg (26-34); Mean Corpuscular Volume 91.8 fl (80-100); Mean Platelet Volume 9.4 fl (7.4-10.4); Platelet Count Result 236 k/mm3 (150-375); Red Cell Distribution Width 13.9 % (11.5-14.5); White Blood Count 9.9 K/mm3 (4.5-10.0)
[2024-04-27 10:27] LABS: Alanine Aminotransferase 11 U/L (6-35); Albumin Level 4.1 g/dL (3.5-5.1); Alkaline Phosphatase 114 U/L (38-126); Anion Gap 6 mmol/L (4-12); Aspartate Amino Transferase 18 U/L (14-36); Bilirubin,Total 0.5 mg/dL (0.2-1.3); Blood Urea Nitrogen 20 mg/dL (7-17); Carbon Dioxide 32 mmol/L (22-30); Chloride 103 mmol/L (98-107); Cholesterol 167 mg/dL (0-200); Estimated Glomerular Filt Rate 45; Glucose 197 mg/dL (65-110); HDL Direct 43 mg/dL; Potassium 3.7 mmol/L (3.4-5.0); Sodium 141 mmol/L (137-145); Triglycerides 212 mg/dL (<150)
[2024-04-27 10:37] LABS: Hemoglobin A1C 7.6 % (<5.7); LDL Cholesterol Direct 78 mg/dL
== END 2024-04-27 09:33 | disposition home or self-care (01) ==
LOC: ANHLAB 09:34
PROVIDERS: PCP Family Medicine Adolescent Medicine; Visit Provider Family Medicine Adolescent Medicine
DX: D64.9 Anemia, unspecified (principal); I12.9 Hypertensive chronic kidney disease with stage 1 through stage 4 chronic kidney disease, or unspecified chronic kidney disease; M18.31 Unilateral post-traumatic osteoarthritis of first carpometacarpal joint, right hand
CPT/HCPCS: 36415; 80053; 80061; 83036; 85027

== ENCOUNTER 2024-10-15 08:34 | Outpatient (CLI) | payer BC, SELFPAY ==
--- NOTE | ~2024-10-15 | MM_ITS ---
EXAMINATION: MM screening [facility] BI w alberto HISTORY: Screening TECHNIQUE: Craniocaudal and mediolateral oblique 3-D tomosynthesis images were obtained and synthetic 2-D images were generated. CAD analysis was submitted and interpreted. COMPARISON: Comparison to multiple prior studies sequentially, with oldest reviewed study dated 01/08. BREAST PARENCHYMAL COMPOSITION: Not dense: There are scattered areas of fibroglandular density. FINDINGS: There are benign-appearing stable bilateral intramammary lymph nodes in the upper outer lester drants. There is a new small mass in the lower inner quadrant of the left breast, middle third with s lightly irregular margins. IMPRESSION: 1. New small left breast mass with irregular margins lower inner quadrant, middle third. 2. Additional mammographic views and possible breast ultrasound are recommended. BI-RADS Category 0: Incomplete: Needs additional imaging evaluation. Reviewed, dictated and finalized at location B. IMPRESSION: 1. New small left breast mass with irregular margins lower inner quadrant, midd le third. 2. Additional mammographic views and possible breast ultrasound are recommended . BI-RADS Category 0: Incomplete: Needs additional imaging evaluation.
--- OUTSIDE RECORDS SUMMARY | 2024-10-15 08:52 | XMS_ITS | Clinical Summary ---
Author Organization [facility] [place] [address] Address [address] [place] [address] Care Team Providers Care Critical Power Technician Name Role Phone Moose Gonzalez MD Primary Care Prov ider Wil Fields MD Unavailable [phone] Allergies No known active allergies Medications losartan (COZAAR) 100 mg tablet Take 0.5 tablets (50 mg total) by mouth daily Active metoprolol XL (TOPROL-XL) 100 mg 24 hr tablet Take 2 tablets (200 mg total) by mouth daily Active zolpidem (AMBIEN) 10 mg tabletIndicatio ns:Sleep-Onset Insomnia Take 1 tablet (10 mg total) by mouth nightly as needed for sleep Active doxazosin (CARDURA) 2 mg tablet Take 1 tablet (2 mg total) by mouth nightly 05/04/2022 Active allopurinoL (ZYLOPRIM) 100 mg tablet Take 1 tablet (100 mg total) by mouth 3 (three) times a day 05/14/2023 Active indomethacin (INDOCIN) 50 mg capsule 04/09/2023 Active semaglutide (OZEMPIC) 0.25 mg or 0.5 mg(2 mg/1.5 mL) pen injector injection Inject 0.25 mg under the skin every 7 days Active omeprazole (PriLOSEC) 40 mg capsule Take 1 capsule (40 mg total) by mouth daily 11/20/2023 Active pravastatin (PRAVACHOL) 20 mg tablet Take 1 tablet (20 mg total) by mouth daily 11/20/2023 Active furosemide (LASIX) 40 mg tabletIndicatio ns:Edema, lower extremity Take 1 tablet (40 mg total) by mouth daily 90 tablet 1 07/27/2024 Active Active Problems Problem Noted Date Diagnosed Date Chronic diastolic congestive heart failure 12/09 Other fatigue 06/06/2023 Dizziness 06/06/2023 Obesity (BMI 30-39.9) 03/22/2022 Stage 3b chronic kidney disease 03/22/2022 JANEL (obstructive sleep apnea) 03/22/2022 Hyperlipidemia associated with type 2 diabetes m ellitus 03/22/2022 Acute kidney injury 12/06/2021 Diastolic heart failure 10/11/2021 Essential hypertension 10/11/2021 Morbid obesity 10/11/2021 Surgical History Surgery Date Site/Laterality Comments HYSTERECTOMY 07/01/1992 - 06/30/1993 Partial GALLBLADDER SURGERY CYST REMOVAL Right x2 HAND SURGERY Right TUBAL LIGATION 07/01/1988 - 06/30/1989 BLADDER REPAIR with Hysterectomy Medical History Medical History Date Comments Hypertension Diabetes mellitus (HCC) Family History Medical History Relation Name Comments Heart disease Father Hypertension Father Dementia Mother Diabetes Mother Hypertension Mother Relation Name Status Comments Father Alive Mother (Age 86) passed wendi y 2020 Social History Tobacco Use Types Packs/Day Years Used Date Smoking Tobacco: Former Cigarettes Smokeless Tobacco: Never Tobacco Cessation:Counseling Given: Not Answered Comments Unknown Sex and Gender Information Value Date Recorded Sex Assigned at Not on file Legal Sex Female 2:35 AM TOP EXECUTIVE Gender Identity Not on file Sexual Orientation Not on file Obstetrics History Last Filed Vital Signs Vital Sign Reading Time Taken Comments Blood Pressure 138/68 12/10/2023 2:23 PM CDT Pulse 72 12/10/2023 2:23 PM CDT Temperature 36.2 C (97.2 F) 12/22/2021 9:38 AM CDT Respiratory Rate - - Oxygen Saturation 98% 12/10/2023 2:23 PM CDT Inhaled Oxygen Concentration - - Weight 82.1 kg (181 lb) 12/10/2023 2:23 PM CDT Height 160 cm (5' 3 ) 12/10/2023 2:23 PM CDT Body Mass Index 32.06 12/10/2023 2:23 PM CDT Plan of Treatment Health Maintenance Due Date Last Done Comments Albumin Creatinine Ratio, Urine 1960 Breast Cancer Screening-Mammogram 1960 Colon Cancer Screening-Colonoscopy 1960 Depression Screening 1960 Hemoglobin A1C 1960 Hepatitis C Screening 1960 Dilated Eye Exam 1960 Foot Exam 1960 DTaP/Tdap/Td Vaccine (1 - Tdap) 1971 Hepatitis B Screening 1978 Regular Well Visit/Exam 18-64 1978 Pneumococcal vaccine <65 (1 of 2 - PCV) 1979 Zoster Vaccine (1 of 2) 2010 eGFR 03/22/2023 03/22/2022, 10/26/2021 Covid-19 Vaccine (5 - 2023-2 5 season) 2024 05/17/2022, 05/04/2021, 07/28/2020, Additional history exists Influenza Vaccine (#1) 2024 , 03/06/2022, 03/14/2021, Additional history exists Lipid Panel 12/09/2024 12/10/2023, 03/31, 11/28/2022, Additional history exists Procedures Procedure Name Priority Date/Time Associated Diagnosis Comments POCT LIPID PANEL Routine 12/10/2023 2:16 PM CDT Hyperlipidemia associated with type 2 diabetes mellitus (HCC) BASIC METABOLIC PANEL Routine 03/22/2022 Chronic diastolic heart failure (HCC) Essential hypertension Stage 3b chronic kidney disease (HCC) from Last 3 Months or Most Recently Relevant to Health Maintenance Results * POCT lipid panel (12/10/2023 2:16 PM CDT) Cholesterol, POC 122 mg/dL HDL, POC 31 mg/dL Triglycerides, POC 129 mg/dL LDL Cholesterol POC 66 mg/dL Chol/HDL Ratio, POC 2.1 Non-HDL Cholesterol, POC 91 mg/dL Cholesterol Total, POC 122 mg/dL Capillary blood 12/10/2023 2 :16 PM CDT us Wil Fields MD POINT OF CARE TEST ORDERA BLES Final Result * (ABNORMAL) Basic metabolic panel (03/22/2022) SCRIBED Sodium 140 137 - 145 mmol/L EXTERNAL LAB SCRIBED Potassium 3.4 3.4 - 5.0 mmol/L EXTERNAL LAB SCRIBED Chloride 97(A) 98 - 107 mmol/L EXTERNAL LAB SCRIBED Carbon Dioxide 33(A) 22 - 30 mmol/L EXTERNAL LAB SCRIBED Anion Gap 10 8 - 16 mmol/L EXTERNAL LAB SCRIBED Urea Nitrogen (BUN) 21(A) 7 - 17 mg/dl EXTERNAL LAB SCRIBED Creatinine 1.20(A) 0.7 - 1.0 mg/dl EXTERNAL LAB SCRIBED Glucose 180(A) 65 - 110 mg/dl EXTERNAL LAB SCRIBED Calcium 9.0 8.4 - 10.2 mg/dl EXTERNAL LAB SCRIBED eGFR in N/A N/A - N/A EXTERNAL LAB SCRIBED eGFR in NonAfrican [place] 46 > or = 60 EXTERNAL LAB Blood 03/22/2022 us Wil Fields MD LAB BLOOD ORDERABLES Adilene nielsen Result EXTERNAL LAB from Last 3 Months or Most Recently Relevant to Health Maintenance Insurance [employer] [place] [employer] [place] Care Teams Critical Power Technician Relationship Specialty Start Date End Date Moose Gonzalez MD [address] [place] [address] PCP - General Family Medicine 10/11/21 Wil Fields MD [address] [facility] [address] [place] [address] Consulting Physician Cardiology 12/22/21
--- OUTSIDE RECORDS SUMMARY | 2024-10-15 08:52 | XMS_ITS | Clinical Summary ---
Author Organization [facility] Address [address] [place] [address] Phone Care Team Providers Care Mingler Operator Name Role Phone Moose Gonzalez MD Primary Care Provider [phone] Allergies No known active allergies Medications citalopram (CELEXA) 20 mg Oral tablet Take 20 mg by mouth daily at bedtime. Active oxybutynin chloride (DITROPAN) 5 mg Oral tablet Take 5 mg by mouth 2 times daily. Active metFORMIN ER 24 hour (GLUCOPHAGE XR) 500 mg Oral tablet Take 500 mg by mouth daily at bedtime. Active zolpidem (AMBIEN) 10 mg Oral tablet Take 10 mg by mouth nightly as needed. Active HYDROcodone-roxanna taminophen (LORTAB) 5-334 mg/10 mL Oral solution Take 15 mL by mouth every 4 hours as needed for Pain, Moderate (For Pain Scale 4-6). 250 mL 0 05/08/2012 Active amoxicillin (AMOXIL) 250 mg/5 mL Oral suspension Take 5 mL by mouth every 8 hours. 150 mL 0 05/08/2012 Active Family History Medical History Relation Name Comments Healthy Brother Hypertension Brother Healthy Daughter Diabetes Father Heart Disease Father Hypertension Father Respiratory Disease Father Stroke Maternal Grandfather Diabetes Maternal Grandmother Heart Disease Maternal Grandmother Cancer Mother Diabetes Mother Hypertension Mother Healthy Son Relation Name Status Comments Brother Daughter Father Maternal Grandfather Maternal Grandmother Mother Son Social History Tobacco Use Types Packs/Day Years Used Date Smoking Tobacco: Never Assessed Alcohol Use Standard Drinks/Week Comments No 0 (1 standard drink = 0.6 oz pur e alcohol) Comments Unknown Sex and Gender Information Value Date Recorded Sex Assigned at Not on file Legal Sex Female 6:12 AM WORSHIP LEADER Gender Identity Not on file Sexual Orientation Not on file Occupation Industry Job Start Date Job End Date Not on file Not on file Not on file Not on file Last Filed Vital Signs Vital Sign Reading Time Taken Comments Blood Pressure 132/71 05/09/2012 7:50 AM WORSHIP LEADER Pulse 78 05/08/2012 8:30 PM WORSHIP LEADER Temperature 35.9 C (96.7 F) 05/09/2012 7:50 AM WORSHIP LEADER Respiratory Rate 15 05/09/2012 9:00 AM WORSHIP LEADER Oxygen Saturation 93% 05/09/2012 9:00 AM WORSHIP LEADER Inhaled Oxygen Concentration - - Weight 101.3 kg (223 lb 4 oz) 05/08/2012 1:12 PM WORSHIP LEADER Height 161.3 cm (5' 3.5 ) 05/08/2012 1:12 PM WORSHIP LEADER Body Mass Index 38.93 05/08/2012 1:12 PM WORSHIP LEADER Plan of Treatment Health Maintenance Due Date Last Done Comments DTAP/TDAP/TD VACCINES (1 - Tdap) 1979 HPV/Cotest (21-29) 1981 PAP SMEAR 1981 CERVICAL CANCER SCREENING 1990 HPV/Cotest (30-65) 1990 PAP SMEAR 1990 BREAST CANCER SCREENING 2000 COLORECTAL SCREENING 2005 Colorectal Cancer Screening 2005 FIT-DNA Q 3 years 2005 FIT/FOBT Q 1 year 2005 Flex Sig/CT Colonography Q 5 years 2005 ZOSTER VACCINE (1 of 2) 2010 INFLUENZA VACCINE (#1) 2024 RSV VACCINE (60+ or ) (1 - 1-dose 75+ series) 2035 PNEUMOCOCCAL VACCINE 0-49 YEARS Aged Out No longer eligible based on patient's age to complete this topic Medical Devices Implanted Type Area Senior Safety Management Consultant Device Identifier Shelf Expiration Date Model / Serial / Lot Log [id number] - Frankie Feldman Mandible Fixation - 1 - Plate Mini Reg 4h [id number] Implanted:Qty: 1 on 05/08/2012 at [facility] Plate Bilateral: Mandible FRANKIE FEL[employer] LP [id number] 1 / / LOAD #35 Log [id number] Shade Feldman Mmf Mandible Maxillo Fixation - 1 - Screw Mmf Maxdrv 2.0x12mm [id number] Implanted:Qty: 4 on 05/08/2012 at [facility] Screw Bilateral: Mandible [employer]ANKIE FEL[employer] LP [id number] / / LOAD #35 Log [id number] Shade Feldman Mandible Fixation - 1 - Screw Mini Crssdr 2.0x5mm - Implanted:Qty: 2 on 05/08/2012 at [facility] Screw Bilateral: Mandible [employer] F[employer] LP [id number] / / LOAD #35 Log [id number] Shade Feldman Mandible Fixation - 1 - Screw Mini Crssdr 2.0x5mm Implanted:Qty: 2 on 05/08/2012 at [facility] Screw Bilateral: Mandible [employer] F[employer] LP [id number] / / LOAD #35 Log [id number] Shade Feldman Mandible Fixation - 1 - Screw Mini Crssdr 2.0x7mm Implanted:Qty: 2 on 05/08/2012 at [facility] Screw Bilateral: Mandible [employer]ANKIE FEL[employer] LP [id number] / / LOAD #35 Explanted Type Area Senior Safety Management Consultant Device Identifier Shelf Expiration Date Model / Serial / Lot Log [id number] Shade Feldman Mandible Fixation - 1 - Screw Mini Crssdr 2.0x7mm 07- Explanted:Qty: 2 on 05/08/2012 at [facility] Screw Bilateral: Mandible [employer]ANKIE FEL[employer] LP [id number] / / LOAD #35 Insurance [facility] BLUE ACCESS/TRUE BLUE PPO BCBS BLUE ACCESS/TRUE BLUE PPO Advance Directives For more information, please contact: [phone] * Full Code (Latest Code Status on File) Date Activated Date Inactivated Comments 05/08/2012 6:31 PM 05/09/2012 12:42 PM * Full Code Date Activated Date Inactivated Comments 05/08/2012 4:21 PM 05/08/2012 6:31 PM Care Teams Mingler Operator Relationship Specialty Start Date End Date Moose Gonzalez MD PCP - General Family Practice 05/08/12
--- OUTSIDE RECORDS SUMMARY | 2024-10-15 08:52 | XMS_ITS | Patient Health Record ---
Author Organization [facility] Address [address] [place] [address] Care Team Providers Care Bank Vault Attendant Name Role Phone Amauri Tai Primary Care Provider Reason For Referral No Information Immunizations Vaccine Route Administration Date Status Comme nts COVID-19 Moderna 1ST IM Intramuscular 06/30/2020 Administered EUA provided. Screening complete and consent signed. Pt tolerated well. COVID-19 Moderna 1ST IM Intramuscular 07/28/2020 Administered COVID-19 Moderna Booster IM Intramuscular 05/04/2021 Administered Plan Of Treatment No Information
--- OUTSIDE RECORDS SUMMARY | 2024-10-15 08:52 | XMS_ITS | Referral Summary ---
Author Organization [facility] [address] Address [address] [place] [address] Care Team Providers Care Customs Port Director Name Role Phone Moose Gonzalez MD Primary Care Prov ider Wil Fields MD Unavailable [phone] Allergies No known active allergies Medications losartan [...] 10/11/2021 Essential hypertension 10/11/2021 Morbid obesity 10/11/2021 Social History Tobacco Use Types Packs/Day Years Used Date Smoking Tobacco: Former Cigarettes Smokeless Tobacco: Never Tobacco Cessation:Counseling Given: Not Answered Comments Unknown Sex and Gender Information Value Date Recorded Sex Assigned at Not on file Legal Sex Female 2:35 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 Gender Identity Not on file Sexual Orientation Not on file Last Filed Vital Signs [...] 12/10/2023 2:23 PM CDT Plan of Treatment Not on file Procedures Procedure Name Priority Date/Time Associated Diagnosis [...] Capillary blood 12/10/2023 2 :16 PM CDT Wil Fields MD POINT OF CARE TEST [...] N/A EXTERNAL LAB SCRIBED eGFR in NonAfrican Kazakh 46 > or = 60 EXTERNAL LAB Blood 03/22/2022 Wil Fields MD LAB BLOOD ORDERABLES Adilene l Result EXTERNAL LAB from Last 3 Months or Most Recently Relevant to Health Maintenance Insurance [facility] [place] Care Teams Customs Port Director Relationship Specialty Start Date End Date Moose Gonzalez MD [address] [place] [address] PCP - General Family Medicine 10/11/21 Wil Fields MD [address] [facility] [address] [place] [id number] Consulting Physician Cardiology 12/22/21
== END 2024-10-15 08:35 | disposition home or self-care (01) ==
PROVIDERS: PCP Family Medicine Adolescent Medicine; Visit Provider Family Medicine Adolescent Medicine
DX: Z12.31 Encounter for screening mammogram for malignant neoplasm of breast (principal); R92.8 Other abnormal and inconclusive findings on diagnostic imaging of breast
CPT/HCPCS: 77063; 77067

== ENCOUNTER 2024-11-26 12:47 | Outpatient (CLI) | payer BC, SELFPAY ==
--- NOTE | ~2024-11-26 | MMUS_ITS ---
EXAMINATION: MM diagnostic melanie LT w alberto, US breast LT limited HISTORY: Follow-up left breast mass TECHNIQUE: Additional 3-D tomosynthesis images of the left breast were performed and synthetic 2-D im ages were generated. CAD analysis was submitted and interpreted. High resolution Limited left breast ultrasound was performed. COMPARISON: Comparison to multiple prior studies sequentially, with oldest reviewed study dated 08/2016. BREAST PARENCHYMAL COMPOSITION: Not dense: There are scattered areas of fibroglandular density. FINDINGS: MAMMOGRAPHIC FINDINGS: The mass in the lower inner quadrant of the left breast is not present on the current study. Stable a ppearance to masses in the lateral aspect of the left breast, considered benign. ULTRASOUND: Limited left breast ultrasound: Normal heterogeneous echotexture without focal solid or cystic mass. IMPRESSION: 1. No evidence for malignancy in the left breast. 2. Routine yearly screening mammogram and regular clinical breast examination are recommended. BI-RADS Category 1: Negative Reviewed, dictated and finalized at location A. IMPRESSION: 1. No evidence for malignancy in the left breast. 2. Routine yearly screening mammogram and regular clinical breast examination a re recommended. BI-RADS Category 1: Negative
--- OUTSIDE RECORDS SUMMARY | 2024-11-26 12:52 | XMS_ITS | Clinical Summary ---
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 BUFFER Gender Identity Not on file Sexual Orientation [...] 2:23 PM CDT Height 160 cm (5' 3) 12/10/2023 2:23 PM CDT Body Mass Index [...] 2024 05/17/2022, 05/04/2021, 07/28/2020, Additional history exists Lipid Panel 12/09/2024 12/10/2023, 03/31, 11/28/2022, Additional history exists Influenza Vaccine (Season Ended) 2025 04/09/2023, 03/06/2022, 03/14/2021, Additional history exists Procedures Procedure Name Priority [...] N/A EXTERNAL LAB SCRIBED eGFR in NonAfrican Honduran 46 > or = 60 EXTERNAL LAB Blood 03/22/2022 us Wil Fields MD LAB BLOOD ORDERABLES Adilene nielsen Result EXTERNAL LAB from Last 3 Months or Most Recently Relevant to Health Maintenance Insurance [facility] [employer] [place] [employer] [place] Care Teams Jewelry Salesperson Relationship Specialty Start Date End Date Moose Gonzalez MD [address] [place] [address] PCP - General Family Medicine 10/11/21 Wil Fields MD [address] [facility] [address] [place] [address] Consulting Physician Cardiology 12/22/21
--- OUTSIDE RECORDS SUMMARY | 2024-11-26 12:52 | XMS_ITS | Referral Summary ---
Author Organization [facility] [address] Address [address] [place] [address] Care Team Providers Care Regional Dedicated Truck Driver Name Role Phone Moose Gonzalez MD Primary Care Prov ider Wil Fields MD Unavailable [phone] Allergies No known active allergies Medications losartan [...] on file Legal Sex Female 2:35 AM DBAS Gender Identity Not on file Sexual Orientation [...] N/A EXTERNAL LAB SCRIBED eGFR in NonAfrican Saudi Arabian 46 > or = 60 EXTERNAL LAB Blood 03/22/2022 Wil Fileds MD LAB BLOOD ORDERABLES Adilene l Result EXTERNAL LAB from Last 3 Months or Most Recently Relevant to Health Maintenance Insurance [facility] [employer] [place] [employer] [place] Care Teams Regional Dedicated Truck Driver Relationship Specialty Start Date End Date Moose Gonzalez MD [address] [place] [address] PCP - General Family Medicine 10/11/21 Wil Fields MD [address] [facility] [address] [place] [id number] Consulting Physician Cardiology 12/22/21
--- OUTSIDE RECORDS SUMMARY | 2024-11-26 12:52 | XMS_ITS | Clinical Summary ---
Author Organization [facility] Address [address] [place] [address] Phone Care Team Providers Care Boat Builder Name Role Phone Moose Gonzalez MD Primary Care Provider [phone] Allergies No known active allergies Medications citalopram [...] on file Legal Sex Female 6:12 AM ASSOCIATE DEAN OF WOMEN Gender Identity Not on file Sexual Orientation Not on file Occupation Industry Job Start Date Job End Date Not on file Not on file Not on file Not on file Last Filed Vital Signs Vital Sign Reading Time Taken Comments Blood Pressure 132/71 05/09/2012 7:50 AM ASSOCIATE DEAN OF WOMEN Pulse 78 05/08/2012 8:30 PM ASSOCIATE DEAN OF WOMEN Temperature 35.9 C (96.7 F) 05/09/2012 7:50 AM ASSOCIATE DEAN OF WOMEN Respiratory Rate 15 05/09/2012 9:00 AM ASSOCIATE DEAN OF WOMEN Oxygen Saturation 93% 05/09/2012 9:00 AM ASSOCIATE DEAN OF WOMEN Inhaled Oxygen Concentration - - Weight 101.3 kg (223 lb 4 oz) 05/08/2012 1:12 PM ASSOCIATE DEAN OF WOMEN Height 161.3 cm (5' 3.5) 05/08/2012 1:12 PM ASSOCIATE DEAN OF WOMEN Body Mass Index 38.93 05/08/2012 1:12 PM ASSOCIATE DEAN OF WOMEN Plan of Treatment Health Maintenance Due Date Last Done Comments DTAP/TDAP/TD VACCINES (1 - Tdap) 1979 HPV/Cotest (21-29) 1981 CERVICAL CANCER SCREENING 1990 HPV/Cotest (30-65) 1990 PAP SMEAR 1990 BREAST CANCER SCREENING 2000 COLORECTAL SCREENING 2005 Colorectal Cancer Screening 2005 FIT-DNA Q 3 years 2005 FIT/FOBT Q 1 year 2005 Flex Sig/CT Colonography Q 5 years 2005 ZOSTER VACCINE (1 of 2) 2010 INFLUENZA VACCINE (#1) 2024 RSV VACCINE (60+ or ) (1 - 1-dose 75+ series) 2035 Medical Devices Implanted Type Area Sewing Machine Maintenance Mechanic Device Identifier Shelf Expiration Date Model / Serial / Lot Log [id number] - Frankie Feldman Mandible Fixation - 1 - Plate Mini Reg 4h -- Implanted:Qty: 1 on 05/08/2012 at [facility] Plate Bilateral: Mandible FRANKIE FELDMAN LP 25-550-- / / LOAD #35 Log [id number] - Frankie Feldman Mmf Mandible Maxillo Fixation - 1 - Screw Mmf Maxdrv 2.0x12mm [id number] Implanted:Qty: 4 on 05/08/2012 at [facility] Screw Bilateral: Mandible FRANKIE FELDMAN LP 25-092-38- 05 / / LOAD #35 Log [id number] Shade Feldman Mandible Fixation - 1 - Screw Mini Crssdr 2.0x5mm 67-05-1 Implanted:Qty: 2 on 05/08/2012 at [facility] Screw Bilateral: Mandible FR[employer]IE FELDM[employer] LP 25-672-05- / / LOAD #35 Log [id number] Shade Feldman Mandible Fixation - 1 - Screw Mini Crssdr 2.0x5mm - Implanted:Qty: 2 on 05/08/2012 at [facility] Screw Bilateral: Mandible FR[employer]IE FELDM[employer] LP 25-672-05- / / LOAD #35 Log [id number] Shade Feldman Mandible Fixation - 1 - Screw Mini Crssdr 2.0x7mm 07-1 Implanted:Qty: 2 on 05/08/2012 at [facility] Screw Bilateral: Mandible FRANKIE FELDMAN LP 25-672-07- 1 / / LOAD #35 Explanted Type Area Sewing Machine Maintenance Mechanic Device Identifier Shelf Expiration Date Model / Serial / Lot Log [id number] - Frankie Feldman Mandible Fixation - 1 - Screw Mini Crssdr 2.0x7mm -07-1 Explanted:Qty: 2 on 05/08/2012 at [facility] Screw Bilateral: Mandible FRANKIE FELDMAN LP 25-672-07- 1 / / LOAD #[address] [place] [address] BLUE ACCESS/TRUE BLUE PPO [facility] BLUE ACCESS/TRUE BLUE PPO Advance Directives For more information, please contact: [phone] * Full Code (Latest Code Status on File) Date Activated Date Inactivated Comments 05/08/2012 6:31 PM 05/09/2012 12:42 PM * Full Code Date Activated Date Inactivated Comments 05/08/2012 4:21 PM 05/08/2012 6:31 PM Care Teams Boat Builder Relationship Specialty Start Date End Date Moose Gonzalez MD PCP - General Family Practice 05/08/12
== END 2024-11-26 12:48 | disposition home or self-care (01) ==
LOC: ANHIMG 12:48
PROVIDERS: PCP Family Medicine Adolescent Medicine; Visit Provider Family Medicine Adolescent Medicine
DX: R92.8 Other abnormal and inconclusive findings on diagnostic imaging of breast (principal)
CPT/HCPCS: 76642; 77061; 77065; G0279

== ENCOUNTER 2025-05-07 10:21 | Outpatient (CLI) | payer BC, SELFPAY ==
--- NOTE | ~2025-05-07 | XR_ITS ---
EXAMINATION: XR chest 2V DATE: 05/07/2025 11:05 INDICATION: Shortness of breath TECHNIQUE: frontal and lateral views of the chest were obtained. COMPARISON: Chest radiograph dated 05/06/2023 FINDINGS: Calcified nodule at the left costophrenic angle and calcified left hilar lymph nodes consistent with old granulomatous disease. No other airspace opacities, pulmonary edema, pleural effusion or pneumothorax. Heart size is normal. Mild thoracic spondylosis. IMPRESSION: 1. No acute cardiopulmonary disease. Reviewed, dictated and finalized at location A. S AND MARKETING PROFESSIONAL
== END 2025-05-07 10:22 | disposition home or self-care (01) ==
LOC: MICIMG 10:22
PROVIDERS: PCP Internal Medicine; Visit Provider Internal Medicine
DX: R06.02 Shortness of breath (principal)
CPT/HCPCS: 71046

== ENCOUNTER 2025-05-26 12:26 | Outpatient (CLI) | payer MEDICARE, SELFPAY ==
--- NOTE | 2025-05-26 | ECHO_ITS ---
Patient Info Name: Kathy Morgan Age: 65 years : 1960 Gender: Female Ht: 63 in Wt: 151 lbs BSA: 1.76 m2 HR: 76 bpm BP: 120 / 80 mmHg Heart Rhythm: Sinus Rhythm Technical Quality: Good Exam Date: 05/26/2025 12:51 PM Patient Status: O Admit Date: 05/26/2025 Exam Type: CA echo doppler color flow Complete two-dimensional, color flow and Doppler transthoracic echocardiogram is performed. Photogravure Press Operator: Sammie Grey Attending Provider: Julio Armendariz Summary 1. Complete two-dimensional, color flow and Doppler transthoracic echocardiogram is performed. 2. Left ventricular chamber dimension is normal. 3. Left ventricular systolic function is normal, estimated at 60-65. 4. There is mildly increased left ventricular wall thickness. 5. The left ventricular diastolic function is grade I diastolic dysfunction. 6. Left atrial chamber dimension is mildly enlarged. 7. There is mild aortic valve regurgitation. 8. There is mild mitral valve regurgitation. 9. The mitral valve has a calcified annulus. 10. There is mild tricuspid valve regurgitation. Left Ventricle Left ventricular chamber dimension is normal. Left ventricular systolic function is normal, estimated at 60-65. There is mildly increased left ventricular wall thickness. The left ventricular diastolic function is grade I diastolic dysfunction. Right Ventricle Right ventricular chamber dimension is normal. Right ventricular systolic function is normal. Left Atria Left atrial chamber dimension is mildly enlarged. Right Atria Right atrial chamber dimension is normal. Atrial Septum Intact interatrial septum visualized by color flow imaging. Aortic Valve The aortic valve is trileaflet. There is mild aortic valve sclerosis. There is no aortic valve stenosis. There is mild aortic valve regurgitation. Pulmonic Valve The pulmonic valve is normal. There is no pulmonic valve stenosis. There is trace pulmonic regurgitation. Mitral Valve The mitral valve has a calcified annulus. There is no mitral valve stenosis. There is mild mitral valve regurgitation. Tricuspid Valve The tricuspid valve leaflets are normal. There is no significant tricuspid valve stenosis. There is mild tricuspid valve regurgitation. No pulmonary hypertension, estimated pulmonary arterial systolic pressure is 29 mmHg. Pericardium/Pleural The pericardium appears normal. There is no pericardial effusion. Inferior Vena Cava Normal inferior vena cava with >50% collapse upon inspiration consistent with normal right atrial pressure, 10 mmHg. Aorta The aortic root size at the sinus of Valsalva is normal. Left Ventricular Outflow Tract Name Value Normal LVOT 2D LVOT Diameter 1.9 cm LVOT Doppler LVOT Peak Velocity 67 cm/s LVOT Peak Gradient 2 mmHg LVOT Mean Gradient 1 mmHg LVOT VTI 15 cm LVOT VTI/AV VTI Ratio 0.6 LVOT Stroke Volume 41 ml LVOT CO 3.0 l/min LVOT CI 1.7 l/min/m2 Pulmonic Valve Name Value Normal RVOT Doppler RVOT Peak Velocity 75 cm/s RVOT Peak Gradient 2 mmHg PV Doppler PV Peak Velocity 91 cm/s PV Peak Gradient 3 mmHg Tricuspid Valve Name Value Normal TV Regurgitation Doppler TR Peak Velocity 220 cm/s TR Peak Gradient 19 mmHg Estimated PAP/RSVP RA Pressure 10 mmHg <=5 PA Systolic Pressure 29 mmHg <36 RV Systolic Pressure 29 mmHg <36 TV Annular TDI TV Lateral June s' Velocity 11.8 cm/s >=9.5 Aorta Name Value Normal Ascending Aorta Ao Root Diameter (MM) 3.0 cm Ao Root Diam Index (MM) 1.7 cm/m2 Aortic Valve Name Value Normal AV Doppler AV Peak Velocity 112 cm/s AV Peak Gradient 5 mmHg AV Mean Gradient 3 mmHg AV VTI 24 cm AV Area (Cont Eq VTI) 1.7 cm2 >=3.0 AV Area (Cont Eq Paresh) 1.6 cm2 AV DI (Paresh) 0.60 AV Regurgitation 2D LVOT Area 2.7 cm2 Ventricles Name Value Normal LV Dimensions 2D/MM IVS Diastolic Thickness (2D) 1.0 cm 0.6-1.0 LVID Diastole (2D) 5.2 cm 3.8-5.2 LVIW Diastolic Thickness (2D) 0.9 cm 0.6-0.9 LVID Systole (2D) 3.3 cm 2.2-3.5 LVOT Diameter 1.9 cm LV Mass (2D Cubed) 185.58 g 67.00-162.00 LV Mass Index (2D Cubed) 105 g/m2 43-95 Relative Wall Thickness (2D) 0.35 <=0.42 LV Fractional Shortening/Ejection Fraction 2D/MM LV Fractional Shortening (2D) 36 % 27-45 LV EF (2D Teichholz) 65 % LV Diastolic Volume (4C MOD) 49 ml LV EF (4C MOD) 63 % LV Diastolic Volume (2C MOD) 78 ml LV EF (2C MOD) 59 % LV Diastolic Volume (BP MOD) 63 ml 46-106 LV Diastolic Volume Index (BP MOD) 36 ml/m2 29-61 LV Systolic Volume (BP MOD) 25 ml 14-42 LV Systolic Volume Index (BP MOD) 14 ml/m2 8-24 LV EF (BP MOD) 61 % 54-74 LV Diastolic Length (4C) 7.1 cm LV Systolic Length (4C) 6.1 cm LV Stroke Volume (4C MOD) 31 ml Atria Name Value Normal LA Dimensions LA Dimension (MM) 4.0 cm 2.7-3.8 LA Volume (4C A-L) 34 ml LA Volume (BP A-L) 44 ml RA Dimensions RA Area (4C) 10.8 cm2 <=18.0 Report Signatures
--- OUTSIDE RECORDS SUMMARY | 2025-05-26 12:40 | XMS_ITS | Clinical Summary ---
Author Organization [facility] [address] Address [address] [place] [address] Care Team Providers Care Chicken Hatchery Helper Name Role Phone Moose Gonzalez MD Primary Care Prov ider Wil Fields MD Unavailable [phone] Allergies No known active allergies Medications losartan [...] Medical History Date Comments Hypertension Diabetes mellitus Family History Medical History Relation Name Comments [...] on file Legal Sex Female 2:35 AM BUILDING CODE ADMINISTRATOR Gender Identity Not on file Sexual Orientation [...] Colon Cancer Screening-Colonoscopy 1960 Depression Screening 1960 Fall Risk Assessment 1960 Hemoglobin A1C 1960 Hepatitis C Screening 1960 Osteoporosis Screening-Bone Density Scan 1960 Dilated Eye Exam 1960 Foot Exam 1960 DTaP/Tdap/Td Vaccine (1 - Tdap) 1971 Hepatitis B Screening 1978 Pneumococcal vaccine 65+ (1 of 2 - PCV) 1979 Zoster Vaccine (1 of 2) 2010 eGFR 03/22/2023 03/22/2022, 10/26/2021 Lipid Panel 12/09/2024 12/10/2023, 03/31, 11/28/2022, Additional history exists Covid-19 Vaccine (2024-2 6 season) 2025 05/17/2022, 05/04/2021, 07/28/2020, Additional history exists Influenza Vaccine (#1) 2025 , 03/06/2022, 03/14/2021, Additional history exists Well Visit 65+ 2025 Procedures Procedure Name Priority Date/Time Associated Diagnosis [...] - 10.2 mg/dl EXTERNAL LAB SCRIBED eGFR N/A N/A - N/A EXTERNAL LAB SCRIBED eGFR 46 > or = 60 EXTERNAL LAB Blood 03/22/2022 us Wil Fields MD LAB BLOOD ORDERABLES Adilene l Result EXTERNAL LAB from Last 3 Months or Most Recently Relevant to Health Maintenance Insurance [facility] [employer] [place] [place] [place] Care Teams Chicken Hatchery Helper Relationship Specialty Start Date End Date Moose Gonzalez MD PCP - General Family Medicine 10/11/21 Wil Fields MD [address] [place] [address] Consulting Physician Cardiology 12/22/21
--- OUTSIDE RECORDS SUMMARY | 2025-05-26 12:40 | XMS_ITS | Clinical Summary ---
Author Organization [facility] Address [address] [place] [address] Phone Care Team Providers Care Manager Fiber Name Role Phone Moose Gonzalez MD Primary Care Provider [phone] Allergies No known active allergies Medications citalopram [...] on file Legal Sex Female 6:12 AM DIRECTOR MEDICAL ECONOMICS Gender Identity Not on file Sexual Orientation Not on file Occupation Industry Job Start Date Job End Date Not on file Not on file Not on file Not on file Last Filed Vital Signs Vital Sign Reading Time Taken Comments Blood Pressure 132/71 05/09/2012 7:50 AM DIRECTOR MEDICAL ECONOMICS Pulse 78 05/08/2012 8:30 PM DIRECTOR MEDICAL ECONOMICS Temperature 35.9 C (96.7 F) 05/09/2012 7:50 AM DIRECTOR MEDICAL ECONOMICS Respiratory Rate 15 05/09/2012 9:00 AM DIRECTOR MEDICAL ECONOMICS Oxygen Saturation 93% 05/09/2012 9:00 AM DIRECTOR MEDICAL ECONOMICS Inhaled Oxygen Concentration - - Weight 101.3 kg (223 lb 4 oz) 05/08/2012 1:12 PM DIRECTOR MEDICAL ECONOMICS Height 161.3 cm (5' 3.5) 05/08/2012 1:12 PM DIRECTOR MEDICAL ECONOMICS Body Mass Index 38.93 05/08/2012 1:12 PM DIRECTOR MEDICAL ECONOMICS Plan of Treatment Health Maintenance Due Date Last Done Comments DTAP/TDAP/TD VACCINES (1 - Tdap) 1979 BREAST CANCER SCREENING 2000 COLORECTAL SCREENING 2005 Colorectal Cancer Screening 2005 FIT-DNA Q 3 years 2005 FIT/FOBT Q 1 year 2005 Flex Sig/CT Colonography Q 5 years 2005 PNEUMOCOCCAL VACCINE 50+ YEARS (1 of 1 - PCV) 05/12/20 10 ZOSTER VACCINE (1 of 2) 2010 INFLUENZA VACCINE (#1) 2025 OSTEOPOROSIS SCREENING 2025 RSV VACCINE (60+ or ) (1 - 1-dose 75+ series) 2035 Medical Devices Implanted Type Area Senior Government Program Analyst Device Identifier Shelf Expiration Date Model / Serial / Lot Log [id number] - Frankie Feldman Mandible Fixation - 1 - Plate Mini Reg 4h 25-550-04-1 Implanted:Qty: 1 on 05/08/2012 at [facility] Plate Bilateral: Mandible FRANKIE FELDM[employer] LP 25-550-04- 1 / / LOAD #35 Log [id number] - Frankie Feldman Mmf Mandible Maxillo Fixation - 1 - Screw Mmf Maxdrv 2.0x12mm [id number] Implanted:Qty: 4 on 05/08/2012 at [facility] Screw Bilateral: Mandible FRANKIE FELDMAN LP 25-092-38- 05 / / LOAD #35 Log [id number] Shade Feldman Mandible Fixation - 1 - Screw Mini Crssdr 2.0x5mm - Implanted:Qty: 2 on 05/08/2012 at [facility] Screw Bilateral: Mandible FRANKIE FELDMAN LP 25-672-05- 1 / / LOAD #35 Log [id number] Shade Feldman Mandible Fixation - 1 - Screw Mini Crssdr 2.0x5mm - Implanted:Qty: 2 on 05/08/2012 at [facility] Screw Bilateral: Mandible FRANKIE FELDMAN LP 25-672-05- / / LOAD #35 Log [id number] Shade Feldman Mandible Fixation - 1 - Screw Mini Crssdr 2.0x7mm - Implanted:Qty: 2 on 05/08/2012 at [facility] Screw Bilateral: Mandible FRANKIE FELDMAN LP 25-672-07- / / LOAD #35 Explanted Type Area Senior Government Program Analyst Device Identifier Shelf Expiration Date Model / Serial / Lot Log [id number] - Frankie Feldman Mandible Fixation - 1 - Screw Mini Crssdr 2.0x7mm - Explanted:Qty: 2 on 05/08/2012 at [facility] Screw Bilateral: Mandible FRANKIE FELDMAN LP 25-672-07- 1 / / LOAD #35 Insurance [employer] BLUE ACCESS/TRUE BLUE PPO [employer] BLUE ACCESS/TRUE BLUE PPO Advance Directives For more information, please contact: [phone] * Full Code (Latest Code Status on File) Date Activated Date Inactivated Comments 05/08/2012 6:31 PM 05/09/2012 12:42 PM * Full Code Date Activated Date Inactivated Comments 05/08/2012 4:21 PM 05/08/2012 6:31 PM Care Teams Manager Fiber Relationship Specialty Start Date End Date Moose Gonzalez MD PCP - General Family Practice 05/08/12
== END 2025-05-26 12:27 | disposition home or self-care (01) ==
LOC: ANHCARD 12:28
PROVIDERS: PCP Internal Medicine; Visit Provider Internal Medicine
DX: R06.02 Shortness of breath (principal); I34.0 Nonrheumatic mitral (valve) insufficiency; I35.1 Nonrheumatic aortic (valve) insufficiency; I36.1 Nonrheumatic tricuspid (valve) insufficiency
CPT/HCPCS: 93306